=== PATIENT | male | born 1935 | race Caucasian/White ===

== ENCOUNTER 2019-12-18 13:11 | Inpatient (IN) | payer OTHER, BC ==
--- OUTSIDE RECORDS SUMMARY | 2019-12-18 13:13 | XMS REPORT | Continuity of Care Document ---
:1935 Author Organization [facility] Address [address] [place] [address] [place] [id number] Care Team Providers Name Role Phone Star TAVERAS Primary Care Physician Unavailable SYSTEM, NOT IN Attending Clinician Unavailable Star TAVERAS Attending Clinician Unavailable JOSE MCCABE Attending Clinician Unavailable MARTHA PEARSON M.D. Attending Clinician Unavailable MARTHA PEARSON M.D. Admitting Clinician Unavailable Payers Payer Name Policy Type Policy Number Effective Date Expiration Date S miladis MEDICARE PART A [id number] 2000 AND B 00:00:00 [facility] [id number] 00:00:00 Problems This patient has no known problems. Allergies, Adverse Reactions, Alerts This patient has no known allergies or adverse reactions. Medications This patient has no known medications. Procedures This patient has no known procedures. Encounters Start End Encounter Admission Attending Care Care Encounter Source Date/Time Date/Time Type Type Clinicians Facility Department ID 2019-10-07 Outpatient NICOLASA LEWIS MDA [id number] 11:13:57 AN kim 2019-11-09 2019-11-09 Outpatient NATALIA TAVERAS MDA MDA [id number] 00:00:00 00:00:00 SCOTT kim 2019-11-09 2019-11-09 Outpatient NATALIA TAVERAS MDA MDA [id number] 00:00:00 00:00:00 SCOTT kim 2019-11-09 2019-11-09 Outpatient NATALIA MCCABE MDA MDA [id number] 00:00:00 00:00:00 MARGOT kim Results Test Description Test Time Test Comments Results Result Comments Source Hemoglobin A1c 2019-10-02 5.9 07:13:12 Prediabetes: 5.7 - 6.4 Diabetes: >6.4 Glycemic control for adults with diabetes: <7.0Performed At: [facility] [address] [place], [place] [id number] Cedrick Laws MD Ph:[phone] Morphology 2019-09-30 17:13:01 Test Item Value Reference Range Interpretation Comme nts RBC Morph (test code = RBC Morph) As Indicated Normal A Anisocyte (test code = Anisocyte) 1+ A Hypochromia (test code = Hypochromia) 1+ A Microcyte (test code = Microcyte) 1+ A Poik (test code = Poik) 1+ A [place] Cells (test code = Mohsen Cells) 1+ A Elliptocyte (test code = Elliptocyte) 1+ A Schistocytes (test code = Schistocytes) 1+ A Differential Comment (test code = Differential See Comment Slide reviewed Comment) Plt Estimation (test code = Plt Estimation) Increased Normal A Complete Blood Count with [id number] 15:25:25 Test Item Value Reference Range Interpretation Comments WBC (test code = WBC) 8.3 x10 4.8-10.8 RBC (test code = RBC) 4.12 x10 4.60-6.20 L Hgb (test code = Hgb) 8.6 g/dL 14.0-18.0 L MCV (test code = MCV) 74.5 fL 80.0-95.0 L Hct (test code = Hct) 30.7 % 38.0-52.0 L RDW (test code = RDW) 19.6 % 11.5-14.5 N MCHC (test code = MCHC) 28.0 g/dL 31.0-36.0 L MCH (test code = MCH) 20.9 pg 26.0-32.0 L Platelets (test code = 475 x10 140-440 H Platelets) MPV (test code = MPV) 8.9 fL 7.5-11.2 Slide Review (test code Smear Resu lt created by = Slide Review) GL_SET_SLIDE _REVIEW_A UTO Automated [id number] 15:25:25 Test Item Value Reference Range Interpretation Comments Neutro Auto (test code = Neutro Auto) 74.4 % N Lymph Auto (test code = Lymph Auto) 17.2 % N [place] Auto (test code = [place] Auto) 7.1 % N Eos, Auto (test code = Eos, Auto) 0.5 % N Basophil Auto (test code = Basophil 0.6 % N Auto) Neutro Absolute (test code = Neutro 6.2 x10 2.7-7.3 Absolute) Lymph Absolute (test code = Lymph 1.4 x10 0.8-3.5 Absolute) [place] Absolute (test code = [place] 0.6 x10 0.3-0.9 Absolute) Eos Absolute (test code = Eos 0.0 x10 0.0-0.3 Absolute) Baso Absolute (test code = Baso 0.0 x10 0.0-0.1 Absolute) IG [id number] 15:25:25 Test Item Value Reference Range Interpretation Comments IG (test code = IG) 0 % 0-5 IG Abs (test code = IG Abs) 0 x10 N Lipid [id number] 15:15:23 Test Item Value Reference Range Interpretation Comments Cholesterol Total (test code = 71 mg/dL 0-200 Cholesterol Total) Triglycerides (test code = 60 mg/dL 2-150 Triglycerides) HDL (test code = HDL) 35 mg/dL 45-65 L Chol/HDL (test code = Chol/HDL) 2 ratio 0-5 Bilirubin [id number] 15:15:23 Test Item Value Reference Range Interpretation Comments Bilirubin Direct (test code = 0.20 mg/dL 0.00-0.20 Bilirubin Direct) Lipid [id number] 15:15:23 Test Item Value Reference Range Interpretation Comments Cholesterol Total (test 71 mg/dL 0-200 code = Cholesterol Total) Triglycerides (test code 60 mg/dL 2-150 = Triglycerides) HDL (test code = HDL) 35 mg/dL 45-65 L LDL (test code = LDL) 24 mg/dL 1-99 The eq uation being used in this calculation is LDL = (Chol - HDL) - (Trig / 5) Chol/HDL (test code = 2 ratio 0-5 Chol/HDL) Comprehensive Metabolic [id number] 15:15:22 Test Item Value Reference Range Interpretation Comments Sodium Level (test code = 139 mmol/L 136-145 Sodium Level) Potassium Level (test code 4.0 mmol/L 3.5-5.1 = Potassium Level) Chloride Level (test code 109 mmol/L 98-107 H = Chloride Level) CO2 (test code = CO2) 24 mmol/L 21-32 Anion Gap (test code = 6 mmol/L 7-16 L Anion Gap) BUN (test code = BUN) 16 mg/dL 7-18 Creatinine Level (test 1.3 mg/dL 0.7-1.3 code = Creatinine Level) Glucose Level (test code = 109 mg/dL 74-106 H Glucose Level) Calcium Level (test code = 8.6 mg/dL 8.5-10.1 Calcium Level) Alk Phos (test code = Alk 80 IntlUnit/L 45-122 Phos) Bilirubin Total (test code 0.6 mg/dL 0.2-1.0 = Bilirubin Total) Albumin Level (test code = 2.4 g/dL 3.4-5.0 L Albumin Level) Protein Total (test code = 7.1 g/dL 6.4-8.2 Protein Total) ALT (test code = ALT) 13 IntlUnit/L 12-78 AST (test code = AST) 12 IntlUnit/L 10-34 eGFR AA (test code = eGFR >60 mL/min/1.73 m2 N AA) eGFR Non-AA (test code = 53 mL/min/1.73 m2 N eGFR Non-AA) Comprehensive Metabolic [id number] 15:15:22 Test Item Value Reference Range Interpretation Comments Sodium Level (test code = 139 mmol/L 136-145 Sodium Level) Potassium Level (test code 4.0 mmol/L 3.5-5.1 = Potassium Level) Chloride Level (test code 109 mmol/L 98-107 H = Chloride Level) CO2 (test code = CO2) 24 mmol/L 21-32 Anion Gap (test code = 6 mmol/L 7-16 L Anion Gap) BUN (test code = BUN) 16 mg/dL 7-18 Creatinine Level (test 1.3 mg/dL 0.7-1.3 code = Creatinine Level) Glucose Level (test code = 109 mg/dL 74-106 H Glucose Level) Calcium Level (test code = 8.6 mg/dL 8.5-10.1 Calcium Level) Alk Phos (test code = Alk 80 IntlUnit/L 45-122 Phos) Bilirubin Total (test code 0.6 mg/dL 0.2-1.0 = Bilirubin Total) Albumin Level (test code = 2.4 g/dL 3.4-5.0 L Albumin Level) Protein Total (test code = 7.1 g/dL 6.4-8.2 Protein Total) ALT (test code = ALT) 13 IntlUnit/L 12-78 AST (test code = AST) 12 IntlUnit/L 10-34 eGFR AA (test code = eGFR >60 mL/min/1.73 m2 N AA) eGFR Non-AA (test code = 53 mL/min/1.73 m2 N eGFR Non-AA) Comprehensive Metabolic [id number] 15:15:22 Test Item Value Reference Range Interpretation Comments Sodium Level (test code = 139 mmol/L 136-145 Sodium Level) Potassium Level (test code 4.0 mmol/L 3.5-5.1 = Potassium Level) Chloride Level (test code 109 mmol/L 98-107 H = Chloride Level) CO2 (test code = CO2) 24 mmol/L 21-32 Anion Gap (test code = 6 mmol/L 7-16 L Anion Gap) BUN (test code = BUN) 16 mg/dL 7-18 Creatinine Level (test 1.3 mg/dL 0.7-1.3 code = Creatinine Level) Glucose Level (test code = 109 mg/dL 74-106 H Glucose Level) Calcium Level (test code = 8.6 mg/dL 8.5-10.1 Calcium Level) Alk Phos (test code = Alk 80 IntlUnit/L 45-122 Phos) Bilirubin Total (test code 0.6 mg/dL 0.2-1.0 = Bilirubin Total) Albumin Level (test code = 2.4 g/dL 3.4-5.0 L Albumin Level) Protein Total (test code = 7.1 g/dL 6.4-8.2 Protein Total) ALT (test code = ALT) 13 IntlUnit/L 12-78 AST (test code = AST) 12 IntlUnit/L 10-34 eGFR AA (test code = eGFR >60 mL/min/1.73 m2 N AA) eGFR Non-AA (test code = 53 mL/min/1.73 m2 N eGFR Non-AA) Iron and [id number] 15:03:16 Test Item Value Reference Range Interpretation Comments Iron (test code = Iron) 15 mcg/dL 65-175 L TIBC (test code = TIBC) 289 mcg/dL 250-450 Iron Sat (test code = Iron Sat) 5 % 9-59 L
[2019-12-18 14:47] LABS: Absolute Lymphocytes (CBC) 1.3 K/uL (0.7-4.9); Basophils % 0.2 % (0-1.3); Lymphocytes % 7.6 % (15.3-44.8); MPV 7.2 fL (7.6-11.3); RBC Red Blood Cell Count 4.24 M/uL (4.33-5.43)
[2019-12-18 14:55] LABS: Protime INR 1.53
[2019-12-18 15:05] LABS: BUN Blood Urea Nitrogen 23 mg/dL (7-18); Bicarbonate 20 mmol/L (21-32); CKMB Creatine Kinase MB < 1.0 ng/mL (0.3-3.6); Creatine Phosphokinase 293 U/L (39-308); Glucose Level 117 mg/dL (74-106); Potassium 4.1 mmol/L (3.5-5.1); Sodium Level 137 mmol/L (136-145); Troponin (Emerg Dept Use Only) 0.02 ng/mL (0.0-0.045)
[2019-12-18] MEDS ORDERED: NA CHLORIDE 0.9% 2,000 ML ONE (15:07)
[2019-12-18] MEDS ORDERED: PIPER/TAZO/NS 3.375gm 3.375 GM/100 ML BAG ONE ×2 (15:10→21:22)
[2019-12-18 15:21] LABS: Anisocytosis 1+; Blood Morphology Comment NOTED (NOT SEEN); Hypochromasia 1+; Ovalocytes 1+; Platelet Estimate INCR; White Blood Cell Scan OK (OK)
--- NOTE | 2019-12-18 15:32 | EDPHYS ---
Physician Documentation [facility] Name: Rusty Dorantes Age: 84 yrs Sex: Male : 1935 Arrival Date: 12/18/2019 Time: 13:15 Bed 16 Private MD: ED Physician Tyrone Garcia HPI: 12/17 14:28 This 84 yrs old Male presents to ER via Wheelchair with complaints of Urinary snw Problem, Fall Injury. 14:28 Onset: The symptoms/episode began/occurred gradually. Associated signs and symptoms: snw Pertinent positives: abd cramping. The patient has experienced similar episodes in the past, several times. The patient has not recently seen a physician, PCP in [place]. denies fever. 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 - Social history:: Smoking status: Patient denies any tobacco usage or history of. ROS: 14:26 Eyes: Negative for injury, pain, redness, and discharge, ENT: Negative for injury, snw pain, and discharge, Neck: Negative for injury, pain, and swelling, Cardiovascular: Negative for chest pain, palpitations, and edema, Respiratory: Negative for shortness of breath, cough, wheezing, and pleuritic chest pain, Abdomen/GI: Negative for abdominal pain, nausea, vomiting, diarrhea, and constipation, Back: Negative for injury and pain. 14:26 Skin: Negative for injury, rash, and discoloration, Neuro: Negative for headache, weakness, numbness, tingling, and seizure, Psych: Negative for depression, anxiety, suicide ideation, homicidal ideation, and hallucinations. 14:26 Constitutional: Positive for malaise. 14:26 : Positive for urinary symptoms, foul smelling urine. 14:26 MS/extremity: Positive for legs just gave out and pt fell on Friday, no LOC. Exam: 14:24 Head/Face: Normocephalic, atraumatic. Eyes: Pupils equal round and reactive to light, snw extra-ocular motions intact. Lids and lashes normal. Conjunctiva and sclera are non-icteric and not injected. Cornea within normal limits. Periorbital areas with no swelling, redness, or edema. ENT: Nares patent. No nasal discharge, no septal abnormalities noted. Tympanic membranes are normal and external auditory canals are clear. Oropharynx with no redness, swelling, or masses, exudates, or evidence of obstruction, uvula midline. Mucous membranes moist. Neck: Trachea midline, no thyromegaly or masses palpated, and no cervical lymphadenopathy. Supple, full range of motion without nuchal rigidity, or vertebral point tenderness. No Meningismus. Chest/axilla: Normal chest wall appearance and motion. Nontender with no deformity. No lesions are appreciated. 14:24 Constitutional: The patient appears alert, smells of urine, pale, uncomfortable. 14:24 Cardiovascular: Rate: tachycardic, Rhythm: irregularly irregular, Heart sounds: normal. 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 Vital Signs: 13:53 BP 98 / 54; Pulse 99; Resp 16; Temp 98.0; Pulse Ox 99% on R/A; Weight 98.88 kg; Height iw 6 ft. 4 in. (193.04 cm); Pain 0/10; 14:45 BP 116 / 68; Pulse 89; Resp 26 S; Pulse Ox 100% on R/A; aa5 15:30 BP 114 / 68; Pulse 87; Resp 22 S; Pulse Ox 99% on R/A; aa5 16:30 BP 116 / 65; Pulse 87; Resp 20 S; Pulse Ox 100% on R/A; aa5 17:02 BP 101 / 78; Pulse 86; Resp 20 S; Temp 98.0(O); Pulse Ox 99% on R/A; aa5 17:35 BP 107 / 58; Pulse 88; Resp 22 S; Pulse Ox 100% on R/A; aa5 18:30 BP 124 / 87; Pulse 88; Resp 20 S; Pulse Ox 100% on R/A; aa5 20:00 BP 127 / 53; Pulse 93; Resp 20; Pulse Ox 100% on R/A; vc 13:53 Body Mass Index 26.54 (98.88 kg, 193.04 cm) iw MDM: 14:09 Patient medically screened. snw 15:29 Data reviewed: vital signs, nurses notes. Data interpreted: Pulse oximetry: on room air snw is 99 %. Interpretation: normal. Counseling: I had a detailed discussion with the patient and/or guardian regarding: the historical points, exam findings, and any diagnostic results supporting the discharge/admit diagnosis, lab results, radiology results, the need for further work-up and treatment in the hospital. Physician consultation: Kingston Armstrong MD was called at 15:31, was contacted at 15:31, regarding admission, to the telemetry unit. Awaiting: CT scan results. 12/17 14:15 Order name: Basic Metabolic Panel; Complete Time: 06:42 snw 12/17 14:15 Order name: Blood Culture Adult (2) snw 12/17 14:15 Order name: CBC with Diff; Complete Time: 15:24 snw 12/17 14:15 Order name: Ckmb; Complete Time: 06:42 snw 12/17 14:15 Order name: CPK; Complete Time: 06:42 snw 12/17 14:15 Order name: Procalcitonin; Complete Time: 15:29 snw 12/17 14:15 Order name: Protime (+inr); Complete Time: 14:56 snw 12/17 14:15 Order name: Ptt, Activated; Complete Time: 14:56 snw 12/17 14:15 Order name: Troponin (emerg Dept Use Only); Complete Time: 06:42 snw 12/17 14:15 Order name: Urine Microscopic Only; Complete Time: 06:42 snw 12/17 14:22 Order name: Lactate snw 12/17 14:22 Order name: Lactate; Complete Time: 15:09 EDMS 12/17 14:31 Order name: Urine Culture snw 12/17 14:50 Order name: CBC Smear Scan; Complete Time: 15:24 EDMS 12/17 16:55 Order name: Urinalysis W/Microscopic; Complete Time: 06:42 EDMS 12/17 16:55 Order name: Thyroid Stimulating Hormone; Complete Time: 06:42 EDMS 12/17 16:55 Order name: UR CREAT; Complete Time: 06:42 EDMS 12/17 16:55 Order name: UR SODIUM; Complete Time: 06:42 EDMS 12/17 16:55 Order name: CBC with Automated Diff EDMS 12/17 16:55 Order name: CBC with Automated Diff; Complete Time: 06:42 EDMS 12/17 16:55 Order name: CBC with Automated Diff EDMS 12/17 16:55 Order name: CBC with Automated Diff EDMS 12/17 16:55 Order name: Comprehensive Metabolic Panel EDMS 12/17 16:55 Order name: Comprehensive Metabolic Panel; Complete Time: 06:42 EDMS 12/17 16:55 Order name: Comprehensive Metabolic Panel EDMS 12/17 16:55 Order name: Comprehensive Metabolic Panel EDMS 12/17 16:55 Order name: Comprehensive Metabolic Panel EDMS 12/17 16:55 Order name: Magnesium EDMS 12/17 16:55 Order name: Magnesium; Complete Time: 06:42 EDMS 12/17 16:55 Order name: Magnesium EDMS 12/17 14:15 Order name: Chest Single View XRAY; Complete Time: 15:53 snw 12/17 14:15 Order name: Cardiac monitoring; Complete Time: 14:45 snw 12/17 14:15 Order name: EKG - Nurse/Tech; Complete Time: 14:16 snw 12/17 14:15 Order name: IV Saline Lock - Large Bore; Complete Time: 14:46 snw 12/17 14:15 Order name: Labs collected and sent; Complete Time: 14:46 snw 12/17 14:15 Order name: O2 Per Protocol; Complete Time: 14:46 snw 12/17 14:15 Order name: O2 Sat Monitoring; Complete Time: 14:46 snw 12/17 14:15 Order name: Urine Dipstick-Ancillary (obtain specimen); Complete Time: 17:13 snw 12/17 14:15 Order name: CT Head C Spine; Complete Time: 15:53 snw 12/17 16:55 Order name: Chest For Pe Angio EDMS 12/17 16:55 Order name: CONS Pharmacy Consult EDMS 12/17 16:55 Order name: CONS Physician Consult EDVT 12/17 16:55 Order name: CONS Physician Consult EDVT 12/17 16:55 Order name: CONS Physician Consult EDVT 12/17 16:55 Order name: Occupational Therapy Consult EDVT 12/17 16:55 Order name: Physical Therapy Consult EDVT 12/17 16:55 Order name: Heart Healthy EDVT 12/17 16:55 Order name: Echo with Doppler EDVT 12/17 16:55 Order name: Magnesium EDVT 12/17 16:55 Order name: Troponin I EDVT 12/17 16:55 Order name: Troponin I; Complete Time: 06:42 EDMS 12/17 16:55 Order name: Troponin I; Complete Time: 06:42 EDMS 12/17 17:07 Order name: Urine Dipstick--Ancillary (enter results) 12/17 17:40 Order name: Urine Dipstick-Ancillary; Complete Time: 06:42 EDMS 12/17 17:51 Order name: Transferrin Sat/Iron Binding; Complete Time: 06:42 EDVT 12/17 17:51 Order name: Ferritin; Complete Time: 06:42 EDVT 12/17 18:45 Order name: Lactate Sepsis 2 HR Follow-up; Complete Time: 06:42 EDMS 12/17 16:07 Order name: VS Recheck; Complete Time: 16:09 snw 12/17 16:10 Order name: Liz; Complete Time: 16:59 aa5 EC:24 Rate is 106 beats/min. Rhythm is irregularly irregular. QRS Porter is Normal. Clinical snw impression: Atrial Fibrillation. Administered Medications: Discontinued: NS 0.9% 1000 ml IV at 125 ml/hr continuous Discontinued: NS 0.9% 1000 ml IV at 1000 ml once 15:05 Drug: NS 0.9% 1000 ml Route: IV; Rate: 125 ml/hr; Site: left upper arm; aa5 16:37 Follow up: IV Status: Order to discontinue infusion; VO by Dr. Armstrong aa5 15:05 Drug: Zosyn 3.375 grams Route: IVPB; Infused Over: 60 mins; Site: left hand; aa5 16:10 Follow up: Response: No adverse reaction; IV Status: Completed infusion aa5 15:05 Drug: NS 0.9% 1000 ml Route: IV; Rate: 1 bolus; Site: left upper arm; aa5 16:00 Follow up: IV Status: Completed infusion; IV Intake: 1000ml aa5 16:15 Drug: NS 0.9% 1000 ml Route: IV; Rate: 1000 ml; Site: left upper arm; aa5 16:38 Follow up: IV Status: Order to discontinue infusion; VO by Dr. Armstrong aa5 Disposition: 17:03 Co-signature as Attending Physician, yTrone Garcia MD I agree with the assessment and [facility] plan of care. Disposition: 12/18/19 15:32 Hospitalization ordered by Kingston Armstrong for Inpatient Admission. Preliminary diagnosis are Sepsis, unspecified organism, Urinary tract infection, site not specified. - Bed requested for Telemetry/MedSurg (Inpatient). - Status is Inpatient Admission. vc - Condition is Stable. - Problem is new. - Symptoms have worsened. Signatures: Dispatcher [employer] EDVT Tyrone Garcia MD MD cha Waters, Shelly, DRAWER WAXER-C DRAWER WAXER-Csnw Jolly Cloud RN RN Jeanie Corona RN RN aa5 Fany Ordonez Vanessa, RN RN vc Corrections: (The following items were deleted from the chart) 16:10 15:32 Recheck Vital Signs ordered. michelle aa5 17:03 15:32 Hospitalization Ordered by Kingston Armstrong MD for Inpatient Admission. Preliminary [facility] diagnosis is Sepsis, unspecified organism. Bed requested for Telemetry/MedSurg (Inpatient). Status is Inpatient Admission. Condition is Stable. Problem is new. Symptoms have worsened. [facility] 18:10 17:03 12/18/2019 15:32 Hospitalization Ordered by Kingston Armstrong MD for Inpatient eb Admission. Preliminary diagnosis is Sepsis, unspecified organism; Urinary tract infection, site not specified. Bed requested for Telemetry/MedSurg (Inpatient). Status is Inpatient Admission. Condition is Stable. Problem is new. Symptoms have worsened. [facility] 20:22 18:10 12/18/2019 15:32 Hospitalization Ordered by Kingston Armstrong MD for Inpatient vc Admission. Preliminary diagnosis is Sepsis, unspecified organism; Urinary tract infection, site not specified. Bed requested for Telemetry/MedSurg (Inpatient). Status is Inpatient Admission. Condition is Stable. Problem is new. Symptoms have worsened. eb
--- NOTE | 2019-12-18 15:32 | ER ---
Nurse's Notes [facility] Name: Rusty Dorantes Age: 84 yrs Sex: Male : 1935 Arrival Date: 12/18/2019 Time: 13:15 Bed 16 Private MD: Diagnosis: Sepsis, unspecified organism;Urinary tract infection, site not specified Presentation: 12/17 13:51 Chief complaint: Patient states: has had urinary frequency and pain with urination iw since Friday, also fell on Friday but does not have any injuries, legs gave out on him, no fever. 13:51 Method Of Arrival: Wheelchair iw 14:15 Coronavirus screen: Client denies travel out of the [place] in the last 14 days. At this aa5 time, the client does not indicate any symptoms associated with coronavirus-19. 14:15 Acuity: ROBERTO 2 aa5 14:15 Ebola Screen: Patient negative for fever greater than or equal to 101.5 degrees aa5 Fahrenheit, and additional compatible Ebola Virus Disease symptoms. Initial Sepsis Screen: Does the patient meet any 2 criteria? RR > 20 per min. HR > 90 bpm. Yes Does the patient have a suspected source of infection? Yes: Dysuria/Frequency/Urgency/UTI If YES to both, name of provider notified: Cami SINGH. Risk Assessment: Do you want to hurt yourself or someone else? Patient reports no desire to harm self or others. Onset of symptoms was December 2019. 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 - Social history:: Smoking status: Patient denies any tobacco usage or history of. Screenin:45 Abuse screen: Denies threats or abuse. Nutritional screening: No deficits noted. aa5 Tuberculosis screening: No symptoms or risk factors identified. Fall Risk Fall in past 12 months (25 points). No secondary diagnosis (0 pts). IV access (20 points). Ambulatory Aid- None/Bed Rest/Nurse Assist (0 pts). Gait- Weak (10 pts.). Mental Status- Oriented to own ability (0 pts). Total Barboza Fall Scale indicates High Risk Score (45 or more points). Fall prevention measures have been instituted. Side Rails Up X 2 Placed Close to Nursing Station. Assessment: 14:15 General: Appears comfortable, Behavior is calm, cooperative. Pain: Denies pain. Neuro: aa5 Level of Consciousness is awake, alert, obeys commands, Oriented to person, place, time, situation, Reports generalized weakness. . Cardiovascular: Heart tones S1 S2 present Rhythm is irregular. Respiratory: Reports baseline SOB Airway is patent Respiratory effort is even, unlabored, Respiratory pattern is regular, symmetrical. GI: Abdomen is round non-distended, Bowel sounds present X 4 quads. Abd is soft and non tender X 4 quads. Patient currently denies nausea, vomiting. : Reports pain with urination, urgency, since 4 days ago urinary frequency. EENT: No signs and/or symptoms were reported regarding the EENT system. Derm: Skin is dry, Skin is pale, Skin temperature is warm Growth to back noted, approximately 2 in in diameter, is red and hot to touch, is bleeding, pt states "it's cancer and I had one removed in the past". 2nd growth area noted to back that is approximately 1 in in diameter, is red, no bleeding noted. Foul smell noted to growths. Musculoskeletal: Range of motion: intact in all extremities. 14:30 Reassessment: Growths dressed with gauze and Tegaderm. . aa5 15:05 Reassessment: Patient denies pain at this time. Pt lying down in bed watching TV. . aa5 15:05 Reassessment: Pt was only able to void a few drops of urine, PROFESSIONAL ADVISOR was notified. . aa5 15:05 Neuro: Level of Consciousness is awake, alert, obeys commands, Oriented to person, aa5 place, time, situation. Respiratory: Airway is patent Respiratory effort is even, unlabored, Respiratory pattern is regular, symmetrical. 15:05 Derm: Skin is dry, Skin is pale, Skin temperature is warm. aa5 16:30 Reassessment: Dr. Armstrong (Hospitalist) at bedside . aa5 16:45 Reassessment: Awaiting room assignment, pt notified of wait time. . aa5 16:45 Neuro: Level of Consciousness is awake, alert, obeys commands, Oriented to person, aa5 place, time, situation. Respiratory: Airway is patent Respiratory effort is even, unlabored, Respiratory pattern is regular, symmetrical. Derm: Skin is dry, Skin is pale, Skin temperature is warm. 17:30 Reassessment: Pt lying down in bed watching TV. Warm blankets provided, no complains at aa5 this time. Awaiting room assignment. . 18:23 Reassessment: Unsuccessful attempt to give report to admitting nurse. . aa5 Vital Signs: 13:53 BP 98 / 54; Pulse 99; Resp 16; Temp 98.0; Pulse Ox 99% on R/A; Weight 98.88 kg; Height iw 6 ft. 4 in. (193.04 cm); Pain 0/10; 14:45 BP 116 / 68; Pulse 89; Resp 26 S; Pulse Ox 100% on R/A; aa5 15:30 BP 114 / 68; Pulse 87; Resp 22 S; Pulse Ox 99% on R/A; aa5 16:30 BP 116 / 65; Pulse 87; Resp 20 S; Pulse Ox 100% on R/A; aa5 17:02 BP 101 / 78; Pulse 86; Resp 20 S; Temp 98.0(O); Pulse Ox 99% on R/A; aa5 17:35 BP 107 / 58; Pulse 88; Resp 22 S; Pulse Ox 100% on R/A; aa5 18:30 BP 124 / 87; Pulse 88; Resp 20 S; Pulse Ox 100% on R/A; aa5 20:00 BP 127 / 53; Pulse 93; Resp 20; Pulse Ox 100% on R/A; vc 13:53 Body Mass Index 26.54 (98.88 kg, 193.04 cm) iw ED Course: 13:15 Patient arrived in ED. as 13:52 Triage completed. iw 14:02 Jeanie Corona, FREDA is Primary Nurse. aa5 14:09 Cami Segal FNP-C [facility]. snw 14:09 Tyrone Garcia MD is Attending Physician. snw 14:15 Patient has correct armband on for positive identification. Placed in gown. Bed in low aa5 position. Call light in reach. Side rails up X2. quality assurance monitor body on. Pulse ox on. NIBP on. 14:15 Arm band placed on. aa5 14:35 Initial lab(s) drawn, by me, sent to lab. Inserted saline lock: 20 gauge in left upper aa5 arm, using aseptic technique. Blood collected. 14:35 First set of blood cultures drawn by me. aa5 14:45 Second set of blood cultures drawn by me. Inserted saline lock: 20 gauge in left hand, aa5 using aseptic technique. 14:52 Chest Single View XRAY In Process Unspecified. EDMS 15:05 CT Head C Spine In Process Unspecified. EDMS 15:31 Kingston Armstrong MD is Hospitalizing Provider. snw 17:00 Urine collected: Liz catheter specimen, cloudy. Liz cath inserted, using sterile iw technique, 16 Fr., by me, balloon inflated, returned cloudy urine. Patient tolerated well. 19:12 Report given to FREDA Ashby. aa5 20:15 No provider procedures requiring assistance completed. Patient admitted, IV remains in vc place. Administered Medications: Discontinued: NS 0.9% 1000 ml IV at 125 ml/hr continuous Discontinued: NS 0.9% 1000 ml IV at 1000 ml once 15:05 Drug: NS 0.9% 1000 ml Route: IV; Rate: 125 ml/hr; Site: left upper arm; aa5 16:37 Follow up: IV Status: Order to discontinue infusion; VO by Dr. Armstrong aa 15:05 Drug: Zosyn 3.375 grams Route: IVPB; Infused Over: 60 mins; Site: left hand; aa5 16:10 Follow up: Response: No adverse reaction; IV Status: Completed infusion aa5 15:05 Drug: NS 0.9% 1000 ml Route: IV; Rate: 1 bolus; Site: left upper arm; aa5 16:00 Follow up: IV Status: Completed infusion; IV Intake: 1000ml aa5 16:15 Drug: NS 0.9% 1000 ml Route: IV; Rate: 1000 ml; Site: left upper arm; aa5 16:38 Follow up: IV Status: Order to discontinue infusion; VO by Dr. Armstrong aa5 Intake: 16:00 IV: 1000ml; Total: 1000ml. aa5 Outcome: 15:32 Decision to Hospitalize by Provider. snw 20:20 Admitted to Med/surg accompanied by tech, via stretcher, room 209, with chart. vc 20:20 Condition: good 20:22 Patient left the ED. vc 20:22 Instructed on the need for admit. vc Signatures: Dispatcher [employer] EDMS Cami Sgeal, GAME AUTHOR-C GAME AUTHOR-Maria Elena Bates as Jolly Cloud, FREDA RN Jeanie Corona RN RN aa5 Symone Arteaga RN RN vc Corrections: (The following items were deleted from the chart) 16:11 15:05 Zosyn 3.375 grams IVPB in left upper arm over 60 mins aa aa5 17:06 16:30 Reassessment: Dr. Armstrong at bedside . aa aa5 17:23 13:51 Acuity: ROBERTO 3 iw aa 17:23 14:20 Coronavirus screen: Client denies travel out of the [place] in the last 14 days. At aa this time, the client does not indicate any symptoms associated with coronavirus-19. aa5 18:48 14:15 Derm: Skin is pink, warm \\T\\ dry. aa aa5 18:54 14:15 Derm: Skin is pink, warm \\T\\ dry. Growth to back noted, approximately 2 in in aa5 diameter, is red and hot to touch, is bleeding, pt states "it's cancer and I had one removed in the past". 2nd growth area noted to back that is approximately 1 in in diameter, is red, no bleeding noted. Foul smell noted to growths. aa5 18:54 15:05 Reassessment: Patient is alert, oriented x 3, equal unlabored respirations, skin aa5 warm/dry/pink. Patient denies pain at this time. Pt lying down in bed watching TV. . aa5 18:55 16:45 Reassessment: Patient is alert, oriented x 3, equal unlabored respirations, skin aa5 warm/dry/pink. Awaiting room assignment, pt notified of wait time. . aa5
--- NOTE | 2019-12-18 15:51 | RAD REPORT ---
EXAM DESCRIPTION: CT - [id number] - 12/18/2019 3:05 pm CLINICAL HISTORY: Trauma, head and neck injury. fall COMPARISON: No comparisons TECHNIQUE: Axial 5 mm thick images of the head were obtained. Axial 2 mm thick images of the cervical spine were obtained with sagittal and coronal reconstruction images generated and reviewed. All CT scans are performed using dose optimization technique as appropriate and may include automated exposure control or mA/KV adjustment according to patient size. FINDINGS: CT HEAD WITHOUT CONTRAST: No acute hemorrhage, hydrocephalus or extra-axial collection is identified.Moderate generalized brain atrophy is noted.No areas of brain edema or midline shift. Vertebral atherosclerosis. The paranasal sinuses and mastoids are clear.The calvarium is intact. CT CERVICAL SPINE WITHOUT CONTRAST: No fracture or subluxation.Moderate mid and lower cervical degenerative changes.No prevertebral soft tissues swelling is identified. IMPRESSION: No acute intracranial or cervical spine findings. Moderate mid and lower cervical degenerative changes.
--- NOTE | 2019-12-18 15:52 | RAD REPORT ---
EXAM DESCRIPTION: RAD - Chest Single View - 12/18/2019 2:52 pm CLINICAL HISTORY: fall Chest pain. COMPARISON: No comparisons FINDINGS: Portable technique limits examination quality. The lungs are grossly clear. The heart is normal in size. No displaced fractures. IMPRESSION: No acute intrathoracic process suspected.
[2019-12-18] MEDS ORDERED: NA CHLORIDE 0.9% 1,000 ML ONE (16:35)
[2019-12-18] MEDS ORDERED: ALBUTEROL 2.5 MG/3 ML NEB SOL NEB PRN (16:47)
[2019-12-18] MEDS ORDERED: ONDANSETRON 4 MG/2 ML VIAL IV PRN (16:47)
[2019-12-18] MEDS ORDERED: VANCOMYCIN 1 GM in NA CHLORIDE 0.9% 250 ML IVPB ONE (16:51)
[2019-12-18] MEDS ORDERED: Ringers Lactate 1,000 ML IV SCH ×2 (17:00→17:11)
[2019-12-18] MEDS ORDERED: NA CHLORIDE 0.9% 1,000 ML IV SCH (17:00)
--- NOTE | 2019-12-18 17:01 | P.HP ---
Certification for Inpatient Patient admitted to: Inpatient With expected LOS: >2 Midnights Patient will require the following post-hospital care: None Practitioner: I am a practitioner with admitting privileges, knowledge of patient current condition, hospital course, and medical plan of care. Services: Services provided to patient in accordance with Admission requirements found in Title 42 Section 412.3 of the Code of Federal Regulations Patient History Date of Service: 12/18/19 Reason for admission: Weakness, fall History of Present Illness: 84-year-old male with past medical history of HTN on antihypertensive medication-puncture of name, history of hyperlipidemia, history of CAD status post PCI x2 in the past, last 1 was 15 years ago approximately, history of upper back basal cell cancer status post resection over 10 years ago sammy with newly discovered new lesions in the lower back and reportedly referred to MD Garcia over 6 months ago but patient has deferred due to the covid period . He has recently moved to this area and staying with the daughter. He developed increasing weakness since the last 3 days and today after driving home he had a fall while trying to get his walker from the back of his calf. Patient denies any loss of syncope/consciousness. He states he had tripped on a grass while getting his walker . He states he was able to lay himself down to the ground because of weakness. However he was unable to get up independently. He denies any chest pain, he denies any recent shortness of breath, diarrhea, fever or chills. On arrival in the ED he was noted to be hypotensive with systolic blood pressure in the 90s as well as borderline elevated temperature of 99.5. His lactate was elevated at 3.8 on pro calcitonin was high at 1.5. His chest x-ray was clear as well as head CT. His EKG shows afib vs aberent vent conduction rhythm He has been admitted for presumed sepsis. He has received 1 L normal saline as well as IV Zosyn. He was noted by the nursing staff to have bloody drainage from 1 of the large lesions on his lower back - Past Medical/Surgical History Has patient received pneumonia vaccine in the past: No Diabetic: No -: HTN -: HLD -: CAD s/p PCI -: knee surgery -: upper back basal cell excision - Social History Smoking Status: Never smoker Alcohol use: No CD- Drugs: No Caffeine use: No Place of Residence: Home Review of Systems 10-point ROS is otherwise unremarkable Physical Examination - Physical Exam General: Alert, In no apparent distress, Oriented x3, Other (eldelry male , mild dyspneic during conversation ) HEENT: Atraumatic, Normocephalic, PERRLA Neck: Supple, 2+ carotid pulse no bruit, JVD not distended, No Thyromegaly Respiratory: Clear to auscultation bilaterally, Normal air movement Cardiovascular: Normal pulses, Regular rate/rhythm, Normal S1 S2, Edema (trace b/l pedal ) Capillary refill: <2 Seconds Gastrointestinal: Normal bowel sounds, Soft and benign, Non-distended Integumentary: Other (large exophytic 10 x8 cm mass over left back -oozing punctate granulated surface, smaller non oozing lesion over right back ) Neurological: Normal speech, Normal strength at 5/5 x4 extr, Normal tone - Studies Laboratory Data (last 24 hrs) 12/18/19 14:34: PT 17.9 H, INR 1.53, APTT 28.8 12/18/19 14:34: WBC 17.4 H, Hgb 9.5 L, Hct 30.0 L, Plt Count 465 H 12/18/19 14:34: Sodium 137, Potassium 4.1, BUN 23 H, Creatinine 1.53 H, Glucose 117 H Imagings Data: Chest x-ray-clear lungs EKG-sinus tachycardia at 101 beats per min, aberrant conduction defect however on telemetry patient noted with intermittent dropped QRS be consistent with Mobitz type 2 B Assessment and Plan - Problems (Diagnosis) (1) Cancer of skin of back Current Visit: Yes Status: Acute (2) Weakness Current Visit: Yes Status: Acute (3) Falls Current Visit: Yes Status: Acute (4) Sepsis Current Visit: Yes Status: Acute (5) Cellulitis of back Current Visit: Yes Status: Acute (6) Anemia due to blood loss Current Visit: Yes Status: Acute (7) CAD (coronary artery disease) Current Visit: Yes Status: Acute - Advance Directives Does patient have a Living Will: No Does patient have a Durable POA for Healthcare: No - Code Status/Comfort Care Code Status: Full Code Physician Review: Patient Assessed, Agree with Above Assessment and Plan Physician Review Additional Text: # sepsis-may be due to all back cellulitis Follow blood culture Elevated pro calcitonin and leukocytosis noted Start empirical Zosyn with dose Vanco x1 today Follow WBC trend Continue gentle IV fluid but will reduce rate to 50 cc/hour and giving intermittent dyspnea Obtain a UA after place Ilz #Hypotension-improving post IVF Will reduce IVF rate #Acute kidney injury-creatinine elevated at 1.5, obtain urine studies Will consult Nephrology Renally dose medications #Metabolic acidosis-2 to lactic acidosis with acute kidney injury Follow with an IV antibiotics monitor trend -we switch IV fluid to lactate Ringer's #INTERMITTENT DYSPNEA-may be due to mild anemia/sepsis/rule out PE Will obtain CT of the chest to rule out PE if creatinine a improved to 0 less than 1.3 Might need V/Q scan if non improving creatinine in a.m. We start empirical subcutaneous Lovenox despite oozing basal cell cancer lesion #Anemia- due to chronic blood loss from skin cancer or skin Follow him iron profile PRBC p.r.n. hemoglobin less than 7 #Cardiac arrhythmia -may be due to sick sinus syndrome Will obtain tsh Will consult Cardiology 2 serial set of cardiac enzymes # DVT prophylaxis-subcutaneous Lovenox for now # SKin cancer with oozing lesion-Will consult Plastic surgery for evaluation Patient agreeable to surgery if needed at this time #Advanced directive-discussed with patient, he would like full code Time Spent Managing Pts Care (In Minutes): 75
[2019-12-18 17:22] VITALS: BMI 26.5
[2019-12-18 17:39] LABS: Urine Bacteria >50 /HPF (NONE SEEN); Urine Culture Reflex Order NOT NEEDED
[2019-12-18 17:40] LABS: Urine RBC <5 /HPF (NONE SEEN)
[2019-12-18 17:40] LABS: Urine Blood 1+ (NEG); Urine Glucose NEGATIVE (NEG); Urine Protein 3+ (NEG); Urine pH 8.5 (5.0-7.0)
[2019-12-18 17:51] LABS: Ferritin 81.9 ng/mL (26-388); Transferrin 151 mg/dL (200-360)
[2019-12-18 18:52] LABS: Magnesium 2.4 mg/dL (1.8-2.4); Thyroid Stimulating Hormone 1.54 uIU/mL (0.360-3.740); Troponin I 0.02 ng/mL (0.0-0.045)
[2019-12-18] MEDS ORDERED: VANCOMYCIN 1 GM/VIAL ONE (21:22)
[2019-12-18] MEDS ORDERED: NA CHLORIDE 0.9% 250 ML ONE (21:33)
[2019-12-18] MEDS: PIPER/TAZO/NS 3.375gm 3.375 GM/100 ML BAG IVPB SCH (22:58)
[2019-12-19 05:22] LABS: Urine Appearance TURBID; Urine Bilirubin NEGATIVE (NEG); Urine Blood 3+ (NEG); Urine Color DK YELLOW; Urine Glucose NEGATIVE (NEG); Urine Protein 2+ (NEG)
[2019-12-19 06:11] LABS: Urine Bacteria 20-50 /HPF (NONE SEEN); Urine Culture Reflex Order NOT NEEDED; Urine Mucus 1+ /HPF (NONE SEEN); Urine RBC TNTC /HPF (NONE SEEN)
[2019-12-19 06:24] LABS: Absolute Lymphocytes (CBC) 1.5 K/uL (0.7-4.9); Basophils % 0.2 % (0-1.3); Hematocrit 26.8 % (39.6-49.0); Lymphocytes % 15.9 % (15.3-44.8); MPV 7.3 fL (7.6-11.3); RBC Red Blood Cell Count 3.77 M/uL (4.33-5.43)
[2019-12-19 06:31] LABS: Albumin 1.9 g/dL (3.4-5.0); Bilirubin Total 0.5 mg/dL (0.2-1.0); Potassium 3.4 mmol/L (3.5-5.1); Protein, Total 6.3 g/dL (6.4-8.2)
[2019-12-19] MEDS ORDERED: PIPER/TAZO/NS 3.375gm 3.375 GM/100 ML BAG ONE (08:23)
[2019-12-19] MEDS: PIPER/TAZO/NS 3.375gm 3.375 GM/100 ML BAG IVPB SCH ×2 (08:30→21:17)
[2019-12-19] MEDS ORDERED: propofoL 200 MG/20 ML VIAL IV ONE (08:42)
[2019-12-19] MEDS ORDERED: LIDOCAINE 2% MPF 5 ML VIAL ONE (08:43)
[2019-12-19] MEDS ORDERED: Phenylephrine HCl 10 MG/ML 1 ML VIAL ONE (09:00)
[2019-12-19] MEDS ORDERED: FENTANYL CITR 100 MCG/2 ML ONE (09:08)
[2019-12-19] MEDS ORDERED: dexAMETHasone 10 MG/ML VIAL ONE (09:14)
[2019-12-19] MEDS ORDERED: KETOROLAC 30 MG/ML INJ ONE (09:18)
[2019-12-19] MEDS ORDERED: ONDANSETRON 4 MG/2 ML VIAL ONE (09:18)
--- NOTE | 2019-12-19 09:20 | P.PN ---
Subjective Date of Service: 12/19/19 Chief Complaint: Weakness, fall Subjective: No new changes, No C/O voiced Physical Examination - Vital Signs Temperature: 97.1 F Blood Pressure: 115/61 Pulse: 90 Respirations: 16 Pulse Ox (%): 97 - Physical Exam General: Alert, In no apparent distress, Oriented x3 HEENT: Atraumatic, Normocephalic, PERRLA Neck: Supple, 2+ carotid pulse no bruit, JVD not distended Respiratory: Clear to auscultation bilaterally, Normal air movement Cardiovascular: Normal pulses, Regular rate/rhythm, Normal S1 S2 Gastrointestinal: Normal bowel sounds, Soft and benign, Non-distended Musculoskeletal: No clubbing, No swelling Integumentary: No breakdown, No significant lesion, Skin breakdown, Other (mass over mid back ) Neurological: Normal speech, Normal strength at 5/5 x4 extr, Normal tone - Studies Laboratory Data (last 24 hrs) 12/18/19 14:34: PT 17.9 H, INR 1.53, APTT 28.8 12/18/19 14:34: WBC 17.4 H, Hgb 9.5 L, Hct 30.0 L, Plt Count 465 H 12/18/19 14:34: Sodium 137, Potassium 4.1, BUN 23 H, Creatinine 1.53 H, Glucose 117 H Microbiology Data (last 24 hrs): 12/18/19 14:40 Blood - Blood Anaerobic Blood Culture - Final Assessment & Plan - Problems (Diagnosis) (1) Cancer of skin of back Current Visit: Yes Status: Acute (2) Weakness Current Visit: Yes Status: Acute (3) Falls Current Visit: Yes Status: Acute (4) Sepsis Current Visit: Yes Status: Acute (5) Cellulitis of back Current Visit: Yes Status: Acute (6) Anemia due to blood loss Current Visit: Yes Status: Acute (7) CAD (coronary artery disease) Current Visit: Yes Status: Acute Physician Review: Patient Assessed, Agree with Above Assessment and Plan Physician Review Additional Text: # Sepsis- improving - due to back cancer skin cellulitis - Elevated pro calcitonin and leukocytosis noted -c/w empirical Zosyn -continue gentle IVF -follow post back cancer excision today # Hypotension-resolved #Acute kidney injury-Improved to 1.1 now follow renal #Metabolic acidosis-improved -c/w LR # Hypokalemia- will replete #Intermittent Dyspnea - resolved #Anemia- low at 8.4 -due to chronic blood loss from skin cancer or skin -Follow iron profile -PRBC p.r.n. hemoglobin less than 7 # Atrial fib -with RBBB - seen by cardiology this am - plan for further testing post surgery # DVT prophylaxis-subcutaneous Lovenox for now # Back skin cancer with oozing lesion- follow plastic surgery plan for excision today - take to OR today # UTI - follow cx , c/w zosyn #Advanced directive-discussed with patient, he is full code
[2019-12-19] MEDS ORDERED: KCL 20 MEQ/100 mL IVPB 20 MEQ/100 ML BAG IV SCH (10:00)
--- NOTE | 2019-12-19 11:30 | P.CNS ---
Date of Consult: 12/19/19 Reason for Consult: FELIPE Chief Complaint: Weakness, fall History of Present Illness: An 84-year-old man with past medical history of HTN on lisinopril , CAD S/P PCI, and back Basal cell carcinoma pt was refereed to MD Garcia, pt appointment was deferred due to COVID 19 pandemic pt presented for weakness in ER pt was hypotesnive with leucocytosis and Cr 1.5 denied chest pain, palpitation, nausea, vomiting or diarrhea Physical exam general: awake and alert NAD , Neck; Supple, No elevated JVD hear: RRR, normal S1,2 no murmur or rub Chest: CTAB, no rlaes or wheezes Abdomen: Soft , Nt Extremities No edema or ulcer A/p FELIPE due to dehydration + MIKE off lisinopril gentle hydration renal dose meds will consider to remove Raphael catheter tomorrow Septic shock possibly due to back cellulites +/- UTI Cont ABx F/U cultures HAGMA possibly due to FELIPE if no improvement with tomorrows labs will add po Sodium bicarb Hypokalemia replace prn HTN BP borderline now cont hold meds SEGUNDO will start on IV iron Afib with RVR now rate controlled awaiting cardiology recommendation thanks for allowing me to participate in PT care Allergies Opioids - Morphine Analogues Allergy (Verified 12/18/19 20:32) Hives/Rash Home Medications: Aspirin 81 mg PO DAILY 12/18/19 Atorvastatin Calcium 10 mg PO DAILY 12/18/19 lisinopriL [Lisinopril] 10 mg PO DAILY 12/18/19 - Past Medical/Surgical History Diabetic: No -: HTN -: HLD -: CAD s/p PCI -: knee surgery -: upper back basal cell excision - Family History Father Medical History: Heart disease - Social History Alcohol use: No CD- Drugs: No Caffeine use: Yes Place of Residence: Home Physical Examination Temp Pulse Resp BP Pulse Ox 97.2 F 71 18 101/49 L 97 12/19/19 09:48 12/19/19 09:48 12/19/19 09:48 12/19/19 09:48 12/19/19 09:29 Laboratory Data (last 24 hrs) 12/18/19 14:34: PT 17.9 H, INR 1.53, APTT 28.8 12/18/19 14:34: WBC 17.4 H, Hgb 9.5 L, Hct 30.0 L, Plt Count 465 H 12/18/19 14:34: Sodium 137, Potassium 4.1, BUN 23 H, Creatinine 1.53 H, Glucose 117 H
[2019-12-19] MEDS ORDERED: POTASSIUM CL SA 10 MEQ TAB PO ONE (11:46)
[2019-12-19] MEDS ORDERED: Ringers Lactate 1,000 ML IV SCH (12:00)
[2019-12-19 12:25] LABS: Absolute Lymphocytes (CBC) 0.7 K/uL (0.7-4.9); Basophils % 0.1 % (0-1.3); Hematocrit 27.7 % (39.6-49.0); Lymphocytes % 7.1 % (15.3-44.8); MPV 7.4 fL (7.6-11.3); RBC Red Blood Cell Count 3.92 M/uL (4.33-5.43)
--- NOTE | 2019-12-19 12:48 | CON ---
Date of Consultation: 12/19/2019 Reason For Consultation: Atrial fibrillation and cardiac clearance. History Of Present Illness: The patient is an 84-year-old male who has a history of hypertension, dy slipidemia, and anemia, came in for UTI and was noted to have a large what appeared to be basal cell carcinoma on the back. Does plan for him to undergo surgery today by Dr. Perdomo. I was asked to clear him because he was noted to have incidental atrial fibrillation with rapid ventricular response with a right bundle-branch block aberrancy. The patient denied any symptoms from a cardiac standpoi nt. He denied any chest pain, shortness of breath, or palpitations. He denied any PND, orthopnea, p edal edema. Denied any palpitation or syncope. Past Medical History: As stated above his. Allergies: HE IS ALLERGIC TO OPIATES. Review of Systems: Negative. Social History: Negative. Family History: Noncontributory. Medications: At home include lisinopril, Lipitor, and aspirin. Physical Examination: GENERAL: He appeared his stated age. A very pleasant gentleman in no acute distress, atrial fibrill ation, afebrile. Heart rate when I saw him was 80. HEENT: Negative. NECK: Supple. No bruit, lymphadenopathy, JVD, or thyromegaly. CHEST: Clear. CARDIAC: Revealed atrial fibrillation. ABDOMEN: Benign. EXTREMITIES: Revealed no clubbing, cyanosis, or edema. SKIN: Positive for skin cancer on the back. Diagnostic Data: A urinalysis showed UTI. Impression And Plan: 1.Incidental finding of atrial fibrillation, rate controlled. The patient needs to be on metoprolol and Lovenox. Once he is done with surgery, he should have an echocardiogram and he should be placed on Xarelto or Eliquis. Plan to do an outpatient Lexiscan later. He is clear for surgery. His rate is controlled. 2.Mild anemia. 3.Urinary tract infection with elevated procalcitonin, on antibiotics. 4.Dyslipidemia, well controlled. 5.Hypertension, well controlled. I will continue to follow the patient postoperatively. DENICE/THUAN Voice ID: [id number] Report ID: [id number]
--- NOTE | 2019-12-19 13:18 | OP ---
Surgeon: Gigi Perdomo MD Preoperative Diagnosis: Basal cell carcinomas of the right and left back. Postoperative Diagnosis: Basal cell carcinomas of the right and left back. Procedure Performed: Excision of 11 x 10 and 9 x 6 cm basal cell carcinomas of the back. Anesthesia: General. Description Of Procedure: After satisfactory induction of general anesthesia, the patient was placed in the right lateral decubitus position and the back was prepped with Betadine scrub and painted wit h dry sterile drapes in the usual manner. Electrocautery used to make a skin incision, excising the margins around approximately 1 cm over the open areas. Electrocautery used to dissect down through t he fat and the wound was excised superficial to the fascia. Both wounds were done in some manner. E lectrocautery used for hemostasis. Upon completion of this case, both sites were completely dry. Th e wound was then packed with 4 x 4's and ABDs and tape dressing. The patient tolerated the procedure well, returned to the recovery room. Estimated blood loss was 300 mL. YOUNG/THUAN Voice ID: [id number] Report ID: [id number]
[2019-12-19] MEDS: Ringers Lactate 1,000 ML IV SCH (21:17)
--- NOTE | 2019-12-19 21:44 | P.PN ---
Date of Service: 12/19/19 I was not given sign out on this patient, Was called by nursing staff as patient had elevated heart rate around 123. Patient was admitted for sepsis secondary to cellulitis and urinary tract infection. Patient had incidental finding of atrial fibrillation and cardiology was consulted for surgical clearance. Patient was cleared by cardiology with instructions to initiate metoprolol and Lovenox. Patient currently having sinus tachycardia with a rate of 123, blood pressure stable at 120/77 patient afebrile at this time. I when examined the patient, he appeared dry. Urine in catheter drainage bag is dark. Mucous membranes dry. Will continue with LR bolus. Breath sounds clear bilaterally. Will initiate metoprolol therapy with 25 mg p.o. b.i.d. will hold off on Lovenox at this time as patient had surgical procedure today. Patient awake, alert, oriented x4 in no distress. Patient does not feel short of breath this time. Will continue to monitor overnight. Hospitalist service will need to get a hold of surgeon tomorrow to determine if he can be anticoagulated.
[2019-12-19] MEDS: METOPROLOL TAR 25 MG TAB PO SCH (21:53)
[2019-12-20] MEDS: Ringers Lactate 1,000 ML IV SCH ×3 (03:51→22:53)
[2019-12-20] MEDS: METOPROLOL TAR 25 MG TAB PO SCH (05:16)
[2019-12-20 05:39] LABS: Basophils % 0.1 % (0-1.3); Hematocrit 24.7 % (39.6-49.0); Lymphocytes % 12.4 % (15.3-44.8); MPV 7.5 fL (7.6-11.3); RBC Red Blood Cell Count 3.49 M/uL (4.33-5.43)
[2019-12-20 05:53] LABS: Albumin 1.8 g/dL (3.4-5.0); Bilirubin Total 0.3 mg/dL (0.2-1.0); Potassium 4.7 mmol/L (3.5-5.1); Protein, Total 5.9 g/dL (6.4-8.2)
[2019-12-20] MEDS ORDERED: SOD FERRIC GLUC COMPLX/SUCROSE 125 MG in NA CHLORIDE 0.9% 100 ML IV SCH (09:00)
[2019-12-20] MEDS ORDERED: ALBUTEROL 2.5 MG/3 ML NEB SOL NEB PRN (09:00)
--- NOTE | 2019-12-20 09:25 | DS ---
Dressing changed today. There is no bleeding and the dressing is clean and dry. 4x4s applied. Plan surgery on Friday. We will wait for his pathology report prior to excision and skin graft at alex t time. YOUNG/THUAN Voice ID: [id number] Report ID: [id number]
[2019-12-20] MEDS: PIPER/TAZO/NS 3.375gm 3.375 GM/100 ML BAG IVPB SCH ×2 (09:50→21:50)
[2019-12-20] MEDS: IRON SUCROSE 100 MG in NA CHLORIDE 0.9% 100 ML IV SCH (09:50)
[2019-12-20] MEDS ORDERED: NA CHLORIDE 0.9% 250 ML ONE ×2 (09:52→23:57)
[2019-12-20] MEDS: ENOXAPARIN 100 MG/ML SYR SQ SCH ×2 (13:45→21:50)
--- NOTE | 2019-12-20 15:30 | P.PN ---
Subjective Date of Service: 12/20/19 Patient not having any bleeding currently but has bled quite a bit from the back on the wound, but overnight patient was having tachyarrhythmia. Patient blood pressure has also been running on the lower side. Patient has history of Coronary artery Disease then with hemoglobin under 8 will benefit from blood transfusion. I will go ahead and transfuse 2 units of packed red blood cells. Patent getting iron transfusion; however, with his hemodynamic being unstable he will benefit from blood transfusion immediately. Bolus IV fluids as well. Currently on medication for rate control. Review of Systems 10-point ROS is otherwise unremarkable Physical Examination - Vital Signs Temperature: 97.0 F Blood Pressure: 99/57 Pulse: 133 Respirations: 16 Pulse Ox (%): 100 - Physical Exam General: Alert, In no apparent distress, Oriented x3 Respiratory: Clear to auscultation bilaterally, Normal air movement Cardiovascular: Regular rate/rhythm, Normal S1 S2 Gastrointestinal: Normal bowel sounds, Soft and benign, Non-distended, No tenderness Musculoskeletal: No tenderness Integumentary: Skin breakdown, Skin lesion, Other (Wound on the back status post surgical intervention: clean/dry/intact) Neurological: Normal strength at 5/5 x4 extr, Sensation intact, Cranial nerves 3-12 intact - Studies Microbiology Data (last 24 hrs): 12/18/19 14:40 Blood - Blood Anaerobic Blood Culture - Final Medications List Reviewed: Yes Assessment & Plan - Problems (Diagnosis) (1) Anemia due to blood loss Current Visit: Yes Status: Acute (2) CAD (coronary artery disease) Current Visit: Yes Status: Acute (3) Cancer of skin of back Current Visit: Yes Status: Acute (4) Hypoalbuminemia Current Visit: Yes Status: Acute (5) Coagulopathy Current Visit: Yes Status: Acute - Plan Plan: 1. Transfuse 2 units of packed red blood cells 2. Monitor H&H closely 3. Continue cardiac meds for rate control 4. Increase nutrition 5. Monitor albumin and coagulopathy 6. Hand surgery to reassess in the next 24 hr for possible skin graft 7. GI and DVT prophylaxis Discharge Plan: Home Plan to discharge in: Greater than 2 days - Advance Directives Does patient have a Living Will: Yes Does patient have a Durable POA for Healthcare: Yes - Code Status/Comfort Care Code Status: Full Code Physician Review: Patient Assessed, Agree with Above Assessment and Plan Critical Care: No Time Spent Managing PTS Care (In Minutes): 35
[2019-12-20] MEDS ORDERED: NA CHLORIDE 0.9% 500 ML IV ONE (16:00)
[2019-12-20] MEDS ORDERED: ALBUMIN HUMAN 25% 100 ML IV ONE (16:00)
[2019-12-20] MEDS: FLUCONAZOLE 100 MG TAB PO SCH (16:29)
[2019-12-20] MEDS ORDERED: DIGOXIN 0.25 MG/ML AMP IV ONE (17:03)
[2019-12-20] MEDS: METOPROLOL TAR 50 MG TAB PO SCH (17:05)
--- NOTE | 2019-12-20 18:55 | PN ---
Date of Progress Note: 12/20/2019 The patient was seen yesterday for paroxysmal atrial fibrillation with rapid ventricular response, ri ght bundle block aberrancy. He underwent a skin surgery yesterday by Dr. Guzman. There is a plan apparently to do a skin graft on Friday, which is 48 hours from now. The patient remains in atria l fibrillation with normal ventricular response. No cardiac complaint. This atrial fibrillation is new onset as far as we know. He had symptoms of it before and diagnosed with it before. I think con sidering his age and overall status, I would prefer that he gets on anticoagulant. I think Lovenox w ould be reasonable for now. I would like to increase his beta-emily to 25 b.i.d. of Lopressor to c ontrol his rate better. Get an echocardiogram in the morning after his surgery is completed. He davian uld be on Eliquis or Xarelto. I will continue to follow him. DENICE/THUAN Voice ID: [id number] Report ID: [id number]
[2019-12-20] MEDS: NYSTATIN PWDR 100000 UNIT/GM TOP SCH (21:50)
[2019-12-21 05:33] LABS: Absolute Lymphocytes (CBC) 2.1 K/uL (0.7-4.9); Basophils % 0.3 % (0-1.3); Hematocrit 30.2 % (39.6-49.0); Lymphocytes % 25.1 % (15.3-44.8); MPV 7.3 fL (7.6-11.3); RBC Red Blood Cell Count 4.13 M/uL (4.33-5.43)
[2019-12-21] MEDS: METOPROLOL TAR 50 MG TAB PO SCH ×2 (05:46→17:05)
[2019-12-21 05:48] LABS: Albumin 1.8 g/dL (3.4-5.0); Bilirubin Total 0.6 mg/dL (0.2-1.0); Potassium 4.5 mmol/L (3.5-5.1); Protein, Total 5.7 g/dL (6.4-8.2)
[2019-12-21] MEDS: ENOXAPARIN 100 MG/ML SYR SQ SCH ×2 (08:27→21:44)
[2019-12-21] MEDS: FLUCONAZOLE 100 MG TAB PO SCH (08:27)
[2019-12-21] MEDS: PIPER/TAZO/NS 3.375gm 3.375 GM/100 ML BAG IVPB SCH ×2 (08:28→17:06)
[2019-12-21] MEDS: IRON SUCROSE 100 MG in NA CHLORIDE 0.9% 100 ML IV SCH (08:30)
[2019-12-21] MEDS: NYSTATIN PWDR 100000 UNIT/GM TOP SCH ×2 (08:30→21:46)
--- NOTE | 2019-12-21 09:50 | PN ---
Date of Progress Note: 12/20/2019 Chief Complaint: Elevated BUN and creatinine. Subjective: The patient has multiple medical problems and history of hypertension, coronary artery disease, status post PCI. He came to the hospital because of generalized weakness. He was found to have hypotension and leukocytosis. His creatinine level was found to be elevated up to 1.5. The patient denies fever, chills, nausea, vomiting, diarrhea. The patient was found to have acute kidney injury due to prerenal azotemia and nonoliguric acute tubular necrosis. The patient had a Liz catheter placed to monitor urine output. Lisinopril was taken off because of acute kidney injury. The patient received gentle hydration. The patient was treated with antibiotics for septic shock with urinary tract infection and cellulitis. Review of Systems: The patient is feeling better. Denies PND or orthopnea. Physical Examination: Lungs: Diminished breath sounds at bases. Heart: S1 and S2. ABDOMEN: Soft, benign. Extremities: No edema. Laboratory Data: Hemoglobin 9.5, WBC 8.4, platelet count 385,000. Sodium 138, potassium 4.7, chloride 111, CO2 20, BUN 24, creatinine 1.02, glucose 155. Impression And Plan: 1. Acute kidney injury due to prerenal azotemia, renal hypoperfusion. MIKE inhibitor was taken off because of acute kidney injury. Avoid nephrotoxic medication. Continue adequate hydration. 2. History of coronary artery disease. The patient is undergoing cardiac workup. Cardiology consultation was requested. 3. Hypertension. Continue to monitor blood pressure. Adjust medication for blood pressure control. 4. Sepsis hypotension. The patient is on antibiotics. Continue antibiotic renal dose. 5. Possible bladder outlet obstruction. The patient had a Liz catheter. Monitor urine output. Bladder scan is needed. i spent total 34 min including 24 min to coordinate care plan. TASHA/THUAN Voice ID: [id number] Report ID: [id number] MAXIMUS
[2019-12-21 10:19] LABS: Anisocytosis 1+; Blood Morphology Comment NOTED (NOT SEEN); Ovalocytes 1+; Platelet Estimate ADEQ; White Blood Cell Scan OK (OK)
--- NOTE | 2019-12-21 12:19 | P.PN ---
Subjective Date of Service: 12/21/19 Chief Complaint: Weakness, fall Patient doing better; awaiting skin grafting in the morning. Patient unsure as to what type of skin graft. Will touch base with hand surgery. Patient states that he had a prior skin graft that didn't take and he required a wound vacuum afterwards to help with the healing. HR improved. Review of Systems 10-point ROS is otherwise unremarkable Physical Examination - Vital Signs Temperature: 98.4 F Blood Pressure: 136/71 Pulse: 69 Respirations: 16 Pulse Ox (%): 99 - Physical Exam General: Alert, In no apparent distress, Oriented x3 Respiratory: Clear to auscultation bilaterally, Normal air movement Cardiovascular: Regular rate/rhythm, Normal S1 S2, No murmurs Gastrointestinal: Normal bowel sounds, Soft and benign, Non-distended, No tender ness Musculoskeletal: No clubbing, No swelling, No tenderness Neurological: Sensation intact, Cranial nerves 3-12 intact - Studies Medications List Reviewed: Yes Assessment & Plan - Problems (Diagnosis) (1) Anemia due to blood loss Current Visit: Yes Status: Acute (2) CAD (coronary artery disease) Current Visit: Yes Status: Acute (3) Cancer of skin of back Current Visit: Yes Status: Acute (4) Hypoalbuminemia Current Visit: Yes Status: Acute (5) Coagulopathy Current Visit: Yes Status: Acute (6) Basal cell carcinoma (BCC) of back Current Visit: Yes Status: Acute - Plan Plan: 1. Monitor hemodynamics closely; H&H stable 2. Skin graft in AM 3. Continue cardiac meds for rate control 4. Increase nutrition 5. Monitor albumin and coagulopathy 6. HR controlled 7. GI and DVT prophylaxis Discharge Plan: Home Plan to discharge in: Greater than 2 days - Advance Directives Does patient have a Living Will: Yes Does patient have a Durable POA for Healthcare: Yes - Code Status/Comfort Care Code Status: Full Code Physician Review: Patient Assessed, Agree with Above Assessment and Plan Critical Care: No Time Spent Managing PTS Care (In Minutes): 35
[2019-12-21] MEDS: Ringers Lactate 1,000 ML IV SCH ×3 (13:00→14:27)
[2019-12-21] MEDS: MORPHINE 2 MG/ML SYR IV PRN (13:52)
--- NOTE | 2019-12-21 14:32 | PN ---
Date of Progress Note: 12/21/2019 Subjective: The patient was admitted with acute kidney injury secondary to prerenal. The patient's after hydration kidney function started improving. The patient had coronary artery disease and hypertension. Blood pressure has been stabilized. Physical Examination: Vital Signs: When I saw the patient, blood pressure 136/71, pulse of 69, afebrile. Chest: Clear to auscultation. Heart: S1, S2. Systolic murmur. Abdomen: Soft, nontender. Extremity: No edema. Neurologic: Alert, nonfocal. Laboratory Data: Sodium 142, potassium 4.5, bicarb 21, BUN 25, creatinine 1.1, GFR of 64, calcium 7.7. Urinalysis; specific gravity of 1.020, WBC more than 50. Culture negative. Current Medications: The patient on its include IV iron, breathing treatment, fluconazole, Zosyn every 12 hours, digoxin, metoprolol, LR at 75 per hour, morphine. Assessment And Plan: 1. Acute kidney injury secondary to prerenal, recovered, resolved. I am going to continue the patient on current hydration. We will increase IV fluid to 100 and we will monitor the patient. 2. Hypertension, controlled, optimal. Hypotension has been resolved. 3. Acidosis secondary to renal failure, resolved. 4. Sepsis. Continue current antibiotic. I am going to go ahead and adjust Zosyn to every 8 hours. 5. Questionable of obstructive uropathy. We will follow up with the primary. Continue current treatment. We will start bladder training. time spend to coordinate the care , speaking with other Physician and team staff , face to face with the patient and placing order 35 min GARY Voice ID: [id number] Report ID: [id number] MAXIMUS
--- NOTE | 2019-12-21 19:01 | PN ---
Date of Progress Note: 12/21/2019 Mr. Dorantes has been followed for paroxysmal atrial fibrillation. Yesterday, we doubled his metopr olol to 25 b.i.d. Today, he is in sinus rhythm. No complaint. He initially had a skin lesion remov ed from his back and he was cleared for that. He is asymptomatic from a cardiac standpoint. He is o n Lovenox, which we will hold after today. On 12/22/2019, he is undergoing skin grafting to his prev ious surgery site. Echocardiogram is pending. TSH is pending. We will continue his present regimen . He will be on beta-blockers. Since he is asymptomatic, I think rate control should be the goal, h e should also go home on Xarelto or Eliquis, and we will see him in the office in the next week or 2. I will continue to follow meanwhile. DENICE/THUAN Voice ID: [id number] Report ID: [id number]
--- NOTE | 2019-12-21 20:03 | EKG ---
Test Date: 2019-12-20 Test Time: 00:49:40 Warehouse Team Member: RT-O MEASUREMENT RESULTS: Intervals: Rate: 120 IN: 160 QRSD: 126 QT: 366 QTc: 517 [place]: P: IN: 160 QRS: 86 T: 52 INTERPRETIVE STATEMENTS: Sinus tachycardia with premature atrial complexes with aberrant conduction Right bundle branch block Abnormal ECG Compared to ECG 12/18/2019 14:09:03 Atrial premature complex(es) now present Aberrant conduction of supraventricular beat(s) now present Atrial fibrillation no longer present Ventricular premature complex(es) no longer present Electronically Signed On 12-21-19 19:59:37 CDT by Dre Moreira
--- NOTE | 2019-12-21 20:05 | EKG ---
Test Date: 2019-12-18 Test Time: 14:09:03 Director Of Strategic Sourcing: APPLE MEASUREMENT RESULTS: Intervals: Rate: 106 ND: QRSD: 118 QT: 384 QTc: 510 [place]: P: ND: QRS: 93 T: 57 INTERPRETIVE STATEMENTS: Atrial fibrillation with rapid ventricular response with premature ventricular or aberrantly conducted complexes Right bundle branch block Abnormal ECG Electronically Signed On 12-21-19 19:59:49 CDT by Dre Moreira
[2019-12-22] MEDS: PIPER/TAZO/NS 3.375gm 3.375 GM/100 ML BAG IVPB SCH ×3 (00:49→17:00)
[2019-12-22] MEDS: Ringers Lactate 1,000 ML IV SCH ×3 (00:49→23:07)
--- NOTE | 2019-12-22 03:27 | PN ---
The patient's back is not bleeding. We are planning surgery tomorrow. I discussed the case with the pathologist. He will have the report by tomorrow. We will plan on doing excision with margins and the skin graft for frozen sections. YOUNG/THUAN Voice ID: [id number] Report ID: [id number]
[2019-12-22 06:20] LABS: Absolute Lymphocytes (CBC) 2.1 K/uL (0.7-4.9); Basophils % 0.2 % (0-1.3); Hematocrit 29.3 % (39.6-49.0); Lymphocytes % 28.2 % (15.3-44.8); MPV 7.3 fL (7.6-11.3); RBC Red Blood Cell Count 4.01 M/uL (4.33-5.43)
[2019-12-22 06:30] LABS: Albumin 1.8 g/dL (3.4-5.0); Bilirubin Total 0.4 mg/dL (0.2-1.0); Potassium 4.6 mmol/L (3.5-5.1); Protein, Total 5.8 g/dL (6.4-8.2)
[2019-12-22] MEDS: METOPROLOL TAR 50 MG TAB PO SCH ×2 (06:32→17:17)
--- NOTE | 2019-12-22 08:35 | ECHO ---
HEIGHT: 6 ft 4 in WEIGHT: 217 lb 13.067 oz DATE OF STUDY: 12/21/[address]: Kingston Armstrong MD 2-DIMENSIONAL: YES M.MODE: YES DOPPLER: YES COLOR FLOW: YES TDS: YES PORTABLE: NO DEFINITY: NO BUBBLE STUDY: NO DIAGNOSIS: CEREBRAL VASCULAR ACCIDENT, RULE OUT VEGETATION CARDIAC HISTORY: CATHERIZATION: YES SURGERY: NO PROSTHETIC VALVE: NO PACEMAKER: NO MEASUREMENTS (cm) DIASTOLIC (NORMALS) SYSTOLIC (NORMALS) IVSd 1.0 (0.6-1.2) LA Diam 4.4 (1.9-4.0) LVEF 71% LVIDd 4.3 (3.5-5.7) LVIDs 2.6 (2.0-3.5) %FS 40% LVPWd 1.2 (0.6-1.2) Ao Diam (2.0-3.7) 2 DIMENSIONAL ASSESSMENT: RIGHT ATRIUM: NORMAL LEFT ATRIUM: DILATED RIGHT VENTRICLE: NORMAL LEFT VENTRICLE: NORMAL TRICUSPID VALVE: NORMAL MITRAL VALVE: NORMAL PULMONIC VALVE: NORMAL AORTIC VALVE: SCLEROSIS PERICARDIAL EFFUSION: NONE AORTIC ROOT: NORMAL LEFT VENTRICULAR WALL MOTION: NORMAL DOPPLER/COLOR FLOW: MILD MITRAL REGURGITATION. COMMENTS: NORMAL LEFT VENTRICULAR SIZE AND FUNCTION. NO MITRAL VALVE PROLAPSE. LEFT ATRIAL ENLARGEMENT. NO THROMBUS. NORMAL LEFT VENTRICULAR EJECTION FRACTION. ATRIAL FIBRILLATION NOTED. TECHNOLOGIST: Analisa MOREIRA
[2019-12-22] MEDS: FLUCONAZOLE 100 MG TAB PO SCH (09:00)
[2019-12-22] MEDS: NYSTATIN PWDR 100000 UNIT/GM TOP SCH ×2 (09:00→21:00)
[2019-12-22] MEDS: ENOXAPARIN 100 MG/ML SYR SQ SCH (09:00)
[2019-12-22] MEDS: IRON SUCROSE 100 MG in NA CHLORIDE 0.9% 100 ML IV SCH (09:40)
[2019-12-22] MEDS ORDERED: FENTANYL CITR 100 MCG/2 ML ONE (10:21)
[2019-12-22] MEDS ORDERED: MIDAZOLAM HCL 2 MG/2 ML INJ ONE (10:21)
[2019-12-22] MEDS ORDERED: Ringers Lactate 1,000 ML IV ONE ×2 (11:28→23:13)
[2019-12-22] MEDS ORDERED: MINERAL OIL, LITE 10 ML VIAL ONE (11:56)
[2019-12-22] MEDS ORDERED: LIDOCAINE 1% MPF 5 ML VIAL ONE (12:46)
[2019-12-22] MEDS ORDERED: propofoL 200 MG/20 ML VIAL IV ONE (12:46)
[2019-12-22] MEDS ORDERED: NS 0.9% VIAL 10 ML ONE ×2 (12:59→13:20)
[2019-12-22] MEDS ORDERED: EPHEDRINE SULF 50 MG/ML VIAL ONE (12:59)
[2019-12-22] MEDS ORDERED: Phenylephrine HCl 10 MG/ML 1 ML VIAL ONE (13:17)
[2019-12-22] MEDS ORDERED: KETOROLAC 30 MG/ML INJ ONE (13:22)
[2019-12-22] MEDS ORDERED: dexAMETHasone 10 MG/ML VIAL ONE (13:22)
[2019-12-22] MEDS ORDERED: ESMOLOL HCL 10 ML IV ONE (13:25)
[2019-12-22] MEDS ORDERED: ONDANSETRON 4 MG/2 ML VIAL ONE (13:28)
[2019-12-22] MEDS ORDERED: Mastisol Adhesive Liq ONE (13:46)
[2019-12-22] MEDS ORDERED: METOPROLOL TAR 25 MG TAB PO ONE (14:15)
[2019-12-22] MEDS ORDERED: METOPROLOL TARTRATE 5 MG/5 ML INJ IV ONE (14:41)
[2019-12-22] MEDS ORDERED: NA CHLORIDE 0.9% 500 ML IV ONE (16:00)
[2019-12-22] MEDS ORDERED: DIGOXIN 0.25 MG/ML AMP IV SCH (16:00)
[2019-12-22 16:01] LABS: Absolute Lymphocytes (CBC) 2.1 K/uL (0.7-4.9); Basophils % 0.2 % (0-1.3); Hematocrit 28.7 % (39.6-49.0); Lymphocytes % 17.7 % (15.3-44.8); MPV 7.2 fL (7.6-11.3); RBC Red Blood Cell Count 3.89 M/uL (4.33-5.43)
[2019-12-22] MEDS ORDERED: NA CHLORIDE 0.9% 250 ML ONE ×2 (16:46→19:46)
[2019-12-22] MEDS ORDERED: NA CHLORIDE 0.9% 1,000 ML ONE ×2 (16:53→20:00)
[2019-12-22] MEDS ORDERED: NOREPINEPHRINE 4mg/D5W 250mL 4 MG/250 ML BAG IV ONE (20:03)
[2019-12-22] MEDS: MORPHINE 2 MG/ML SYR IV PRN (20:45)
[2019-12-22 20:47] LABS: Hematocrit 29.2 % (39.6-49.0)
[2019-12-22] MEDS ORDERED: MORPHINE 2 MG/ML SYR ONE (20:50)
[2019-12-22 21:02] LABS: Absolute Lymphocytes (CBC) 3.6 K/uL (0.7-4.9); Basophils % 0.3 % (0-1.3); Lymphocytes % 19.7 % (15.3-44.8); MPV 7.2 fL (7.6-11.3); RBC Red Blood Cell Count 3.83 M/uL (4.33-5.43)
[2019-12-22] MEDS ORDERED: FENTANYL CITR 100 MCG/2 ML IV ONE (22:53)
--- NOTE | 2019-12-22 22:53 | OP ---
Surgeon: Gigi Perdomo MD Preoperative Diagnosis: Basal cell carcinoma of the back. Postoperative Diagnosis: Basal cell carcinoma of the back. Procedure Performed: Excision of basal cell carcinoma 12 x 2 cm and split- thickness skin graft 200sq cm. Anesthesia: General. Description Of Procedure: After satisfactory induction of general anesthesia, the back was prepped with Betadine scrub and painted with dry sterile drapes applied in the usual manner. The scalp was used to make elliptical incision from the 12 o'clock to 3 o'clock position and a larger lesion on the left back. The graft was then harvested from the lateral thigh, 38363dm of an inch thick, meshed to 1-1.5. After the donor site was completely debrided of soft tissue, then wound was then closed in layer. The skin was then stapled in place with socrates. dressed with Xeroform and foam rubber sponge and socrates. The patient tolerated the procedure well. Op site was placed with the donor site. YOUNG/THUAN Voice ID: [id number] Report ID: [id number] [employer]IMUS
[2019-12-22] MEDS ORDERED: DIGOXIN 0.25 MG/ML AMP ONE (23:11)
[2019-12-23] MEDS: DIGOXIN 0.25 MG/ML AMP IV SCH ×2 (00:30→05:58)
[2019-12-23] MEDS ORDERED: NA CHLORIDE 0.9% 250 ML IV SCH (01:00)
[2019-12-23] MEDS ORDERED: NA CHLORIDE 0.9% 250 ML IV ONE ×2 (01:04→04:41)
[2019-12-23] MEDS: PIPER/TAZO/NS 3.375gm 3.375 GM/100 ML BAG IVPB SCH ×3 (01:18→18:08)
[2019-12-23] MEDS ORDERED: NA CHLORIDE 0.9% 500 ML ONE (01:21)
--- NOTE | 2019-12-23 02:31 | DS ---
The patient was transferred from [facility] to the icu for bleeding. The dressing was removed. The graft was removed. There were multiple small points of the bleeding the blood clots were removed. The grafts were not salvageable. After a 5-minute wait, the wound was reexamined again electro cautery used. Then, Surgicel, 4x4s, and tape were applied. Hemoglobin is pending. He was transfused 2 units. His donor site has no signs of bleeding. YOUNG/THUAN Voice ID: [id number] Report ID: [id number] MTDIsaiah
[2019-12-23 05:58] LABS: Absolute Lymphocytes (CBC) 3.8 K/uL (0.7-4.9); Basophils % 0.2 % (0-1.3); Hematocrit 23.5 % (39.6-49.0); Lymphocytes % 20.9 % (15.3-44.8); MPV 7.2 fL (7.6-11.3); RBC Red Blood Cell Count 3.07 M/uL (4.33-5.43)
[2019-12-23] MEDS: METOPROLOL TAR 50 MG TAB PO SCH ×2 (06:00→18:00)
--- NOTE | 2019-12-23 06:01 | PN ---
Date of Progress Note: 12/22/2019 Subjective: Mr. Dorantes underwent skin graft surgery today. He did well with the procedure, did h ave some bleeding and some anemia, went back into rapid atrial fibrillation with hypotension. Blood pressure improved after IV digoxin and so did his heart rate. Lopressor 25 mg b.i.d. should be held. He has received Lovenox. Anticoagulation should be held now because of his bleeding and anemia nee d to be addressed. If he remains hypotensive with an elevated heart rate, the only option at this po int will be IV amiodarone for which he needs to go to the ICU. I discussed the case further with Dr. Gatica. If his heart rate improves and his blood pressure improved, switch him from Lopressor to the sotalol may be an option as well. I will continue to follow him. DENICE/THUAN Voice ID: [id number] Report ID: [id number]
[2019-12-23 06:04] LABS: Protime INR 1.23
[2019-12-23 06:19] LABS: Albumin 1.6 g/dL (3.4-5.0); Bilirubin Total 0.4 mg/dL (0.2-1.0); Magnesium 2.2 mg/dL (1.8-2.4); Phosphorus 4.3 mg/dL (2.5-4.9); Potassium 4.7 mmol/L (3.5-5.1); Protein, Total 4.8 g/dL (6.4-8.2)
[2019-12-23] MEDS: Ringers Lactate 1,000 ML IV SCH (07:00)
--- NOTE | 2019-12-23 08:00 | P.PN ---
Subjective Date of Service: 12/22/19 Patient came back from surgery was significant bleeding. We were hoping we could get it under control on the general medical floor. We spoke with Dr. Perdomo, who recommended holding pressure to get it under control. We held pressure and bleeding stopped temporarily. Patient has gone into atrial fibrill ation with rapid ventricular response. Patient's heart rate was in the 130s to 140s. Patient blood pressure was low as well-70/50s. Patient was given dose of digoxin. Patient's heart rate came down into the 90s. Patient blood pressure went up to 90/50. We went ahead and gave patient some FFPs as patient started bleeding once again. We held pressure again for 30 minutes to get control of the bleeding. Patient's blood pressure was not really improving even after the FFPs. We decided to go ahead and start a blood transfusion as well since patient continued to bleed. We held pressure for over 30 min at that time and we were able to get the bleeding to stop. By this time we had been holding pressure on and off for over an hr, so we went ahead and decided to move the patient to the intensive care unit. Once the patient got to the intensive care unit, patient started having active bleeding once again. The ICU nurse felt the patient had a pulsating bleeding. We notify Dr. Perdomo who came out, and was able to identify the bleeding and cauterized the bleeding. Patient's bleeding stopped. We will monitor the patient in the ICU overnight, and hopefully we can transfer back to the floor tomorrow morning if doing better. Review of Systems 10-point ROS is otherwise unremarkable Physical Examination - Vital Signs Temperature: 97.2 F Blood Pressure: 90/50 Pulse: 99 Respirations: 15 Pulse Ox (%): 100 - Physical Exam General: Alert, In no apparent distress, Oriented x3 HEENT: Atraumatic, PERRLA, EOMI Neck: Supple, JVD not distended Respiratory: Clear to auscultation bilaterally, Normal air movement Cardiovascular: Regular rate/rhythm, Normal S1 S2, No murmurs Gastrointestinal: Normal bowel sounds, Soft and benign, Non-distended, No tenderness Musculoskeletal: No clubbing, No swelling, No tenderness Integumentary: Other (on the back patient has 2 areas were skin grafts were apparently done. Patient has profuse bleeding from those areas) Neurological: Sensation intact, Cranial nerves 3-12 intact - Studies Medications List Reviewed: Yes Assessment & Plan - Problems (Diagnosis) (1) Anemia due to blood loss Current Visit: Yes Status: Acute (2) Atrial fibrillation with rapid ventricular response Current Visit: Yes Status: Acute (3) CAD (coronary artery disease) Current Visit: Yes Status: Acute (4) Cancer of skin of back Current Visit: Yes Status: Acute (5) Hypoalbuminemia Current Visit: Yes Status: Acute (6) Coagulopathy Current Visit: Yes Status: Acute (7) Basal cell carcinoma (BCC) of back Current Visit: Yes Status: Acute - Plan Plan: 1. Transfer to ICU 2. Repeat digoxin dosing 3. Continue with blood transfusion 2. s/p skin graft; appreciate Dr. Perdomo's assistance 3. Continue cardiac meds for rate control 4. Increase nutrition 5. PT evaluation 6. Monitor hemodynamics closely 7. GI and DVT prophylaxis Discharge Plan: Home - Advance Directives Does patient have a Living Will: Yes Does patient have a Durable POA for Healthcare: Yes - Code Status/Comfort Care Code Status: Full Code Physician Review: Patient Assessed, Agree with Above Assessment and Plan Critical Care: Yes Time Spent Managing PTS Care (In Minutes): 45
[2019-12-23] MEDS ORDERED: NOREPINEPHRINE 4 MG in D5W 250 ML IV PRN (08:01)
--- NOTE | 2019-12-23 08:23 | P.PN ---
Subjective Date of Service: 12/23/19 Patient is doing somewhat better today. Still not voiding adequately. Transfuse 1 unit of packed red blood cells. Continue to monitor H&H and hemodynamics. Continue with Levophed drip Review of Systems 10-point ROS is otherwise unremarkable Physical Examination - Vital Signs Temperature: 97.2 F Blood Pressure: 90/50 Pulse: 99 Respirations: 15 Pulse Ox (%): 100 - Physical Exam General: Alert, In no apparent distress, Oriented x3 Respiratory: Clear to auscultation bilaterally, Normal air movement Cardiovascular: Regular rate/rhythm, Normal S1 S2, Systolic murmur Gastrointestinal: Normal bowel sounds, Soft and benign, Non-distended, No tenderness Musculoskeletal: No clubbing, No swelling, No tenderness Neurological: Sensation intact, Cranial nerves 3-12 intact - Studies Medications List Reviewed: Yes Assessment & Plan - Problems (Diagnosis) (1) Anemia due to blood loss Current Visit: Yes Status: Acute (2) Atrial fibrillation with rapid ventricular response Current Visit: Yes Status: Acute (3) CAD (coronary artery disease) Current Visit: Yes Status: Acute (4) Cancer of skin of back Current Visit: Yes Status: Acute (5) Hypoalbuminemia Current Visit: Yes Status: Acute (6) Coagulopathy Current Visit: Yes Status: Acute (7) Basal cell carcinoma (BCC) of back Current Visit: Yes Status: Acute - Plan Plan: 1. Monitor H&H closely 2. Monitor cardiac rhythms 3. Continue with 1 unit of blood transfusion 2. s/p skin graft; appreciate Dr. Perdomo's assistance; to get skin graft completed on Friday 3. Continue cardiac meds for rate control 4. Increase nutrition 5. PT evaluation 6. Monitor hemodynamics closely; wean Levophed 7. GI and DVT prophylaxis - Advance Directives Does patient have a Living Will: Yes Does patient have a Durable POA for Healthcare: Yes - Code Status/Comfort Care Code Status: Full Code Physician Review: Patient Assessed, Agree with Above Assessment and Plan Critical Care: No Time Spent Managing PTS Care (In Minutes): 35
[2019-12-23] MEDS: Levofloxacin500mg IV 500 MG/100 ML BAG IV SCH (08:47)
[2019-12-23] MEDS ORDERED: Levofloxacin500mg IV 500 MG/100 ML BAG IV ONE (08:56)
[2019-12-23] MEDS ORDERED: PIPER/TAZO/NS 3.375gm 3.375 GM/100 ML BAG ONE ×2 (08:56→15:49)
[2019-12-23] MEDS ORDERED: NA CHLORIDE 0.9% 250 ML ONE (08:56)
[2019-12-23] MEDS: NYSTATIN PWDR 100000 UNIT/GM TOP SCH ×2 (09:00→21:00)
--- NOTE | 2019-12-23 10:04 | DS ---
The patient is in the ICU for bleeding last night. The dressing was changed. Electrocautery was use d for hemostasis. He is going to receive 1 unit of blood today. He is on a drip to maintain his pre ssure. Once he is off the Levophed, he will be transferred back to the floor. Planned surgery next Friday for skin graft closure. YOUNG/THUAN Voice ID: [id number] Report ID: [id number]
[2019-12-23] MEDS: NA CHLORIDE 0.9% 1,000 ML IV SCH (11:00)
--- NOTE | 2019-12-23 11:52 | PN ---
Date of Progress Note: 12/23/2019 Subjective: The patient was admitted with acute kidney injury secondary to prerenal, recovered. Than yesterday had significant bleed after surgery, required transfusion. His blood pressure drop. His kidney function bounce back. The patient had atrial fibrillation with RVR. Physical Examination: Vital Signs: Blood pressure of 102/50, pulse of 99, afebrile. Chest: Clear to auscultation. The patient on room air. Heart: S1 and S2. Tachy, regular. Abdomen: Soft, nontender. Extremities: No edema. Neurologic: Alert and oriented x3. No focal. Skin: Dressing on the back. Laboratory Data: WBC 18.2, H and H 7.6/23.5, platelet 407. Sodium 141, potassium 4.7, bicarb 23, BUN 31, creatinine 1.7, calcium 7.1, phos 4.3, magnesium 2.2. BNP 4000. Chest x-ray, mild congestion compared to previous chest x-ray. Current Medications: The patient on its include Zosyn, levothyroxine, Levaquin, IV iron, metoprolol 50 b.i.d., LR at 100. Assessment/plan: 1. Acute kidney injury secondary to prerenal, giving atrial fibrillation with rapid ventricular response. I need to rule out any atheroembolic. I am going to go ahead and get a new UA and get LDH with complement to rule it out and we will follow up. 2. I going to give the patient 500 of normal saline as bolus continue. LR to be discontinue and switch to normal saline. 3. Hypertension. Currently low blood pressure. Continue just metoprolol for rate control. 4. Urinary tract infection. Continue current antibiotic. 5. Wound and decubitus ulcer. Follow up with Surgery. 6. Anemia secondary to blood loss. Continue p.r.n. transfusion. We not going to give Lasix after transfusion today. 7. Hypovolemic shock. Continue resuscitation. He going to receive a transfusion today. 8. Atrial fibrillation with rapid ventricular response as by Cardiology. time spent to coordinate the care , discussing with other team meember the care , face to face with the patient and discussed the plan with patient , placing order 35 min LIDIA/THUAN Voice ID: [id number] Report ID: [id number] MTDIsaiah
--- NOTE | 2019-12-23 13:22 | PN ---
Date of Progress Note: 12/23/2019 Subjective: The patient has been followed by me for paroxysmal atrial fibrillation. He was transfer red to the ICU yesterday because of hypotension. His hemoglobin was 7.6 and has received a total of 4 units of blood products, packed red blood cells, last hemoglobin is pending. He is on Levaquin. He is on Levophed. His last blood pressure was 90/50. His echocardiogram is normal. His main bleedin g was because of the surgery on his back with a skin graft. Dr. Brown is following him in that re jason. He is not on any anticoagulation for now. Plan: We will have to deal with that down the road. We would like to state that his echocardiogram was perfectly normal. If his atrial fibrillation comes back on IV amiodarone. Hoping to wean off the Levophed today. I will discuss the case further with Dr. Gatica. DENICE/THUAN Voice ID: [id number] Report ID: [id number]
[2019-12-23] MEDS ORDERED: NA CHLORIDE 0.9% 1,000 ML ONE (15:49)
[2019-12-23] MEDS ORDERED: NOREPINEPHRINE 4mg/D5W 250mL 4 MG/250 ML BAG IV PRN (15:53)
[2019-12-23] MEDS: IRON SUCROSE 100 MG in NA CHLORIDE 0.9% 100 ML IV SCH (15:57)
[2019-12-23] MEDS ORDERED: NA CHLORIDE 0.9% 1,000 ML IV ONE (16:00)
--- NOTE | 2019-12-23 16:36 | RAD REPORT ---
EXAM DESCRIPTION: RAD - Chest Single View - 12/22/2019 11:58 pm CLINICAL HISTORY: 84 years Male picc line placement COMPARISON: December 18, 2019 TECHNIQUE: AP view of the chest was obtained. FINDINGS: Right peripheral catheter is now present with the tip seen at the atrial caval junction. N o pneumothorax. Cardiac silhouette is enlarged. Central vessels are not increased. Patient is rotated to the right. T ortuosity thoracic aorta. Surgical clips in region of mediastinum. Small right pleural effusion. Linear airspace opacity right hilar region. Patchy airspace opacity rig ht lung base. No infiltrate or effusion on left. IMPRESSION: Right peripheral catheter tip in region of atrial caval junction. No pneumothorax. Small right pleural effusion. Spiculated atelectatic change right mid and lower lung. Electronically signed by: Ann-Marie Lee MD 12/23/2019 12:07 AM CDT Due to temporary technical issues with the PACS/Fluency reporting system, reports are being signed by the in house radiologist without Review as a courtesy to ensure prompt reporting. The interpreting radiologist is fully responsible fo r the content of the report.
[2019-12-23] MEDS: MORPHINE 2 MG/ML SYR IV PRN (18:37)
[2019-12-23 18:49] LABS: Hematocrit 24.3 % (39.6-49.0)
[2019-12-23] MEDS ORDERED: MORPHINE 2 MG/ML SYR ONE (18:49)
[2019-12-23 19:08] LABS: Urine Appearance CLOUDY; Urine Bilirubin NEGATIVE (NEG); Urine Blood NEGATIVE (NEG); Urine Color DK YELLOW; Urine Glucose NEGATIVE (NEG); Urine Protein NEGATIVE (NEG); Urine Specific Gravity >=1.030 (1.005-1.030)
[2019-12-23 19:18] LABS: Urine Microscopic Reflex ORDER UMIC
[2019-12-23 19:30] LABS: Urine Bacteria <20 /HPF (NONE SEEN); Urine Culture Reflex Order REFLEXED; Urine Mucus 2+ /HPF (NONE SEEN); Urine RBC <5 /HPF (NONE SEEN)
[2019-12-23] MEDS ORDERED: D5W 250 ML IV ONE (20:11)
[2019-12-23] MEDS ORDERED: NOREPINEPHRINE 4 MG/4 ML VIAL ONE (20:11)
[2019-12-24] MEDS: PIPER/TAZO/NS 3.375gm 3.375 GM/100 ML BAG IVPB SCH ×3 (01:00→19:17)
[2019-12-24] MEDS ORDERED: NA CHLORIDE 0.9% 1,000 ML ONE (04:47)
[2019-12-24] MEDS: METOPROLOL TAR 50 MG TAB PO SCH ×2 (06:00→17:25)
[2019-12-24 06:04] LABS: Protime INR 1.15
[2019-12-24] MEDS: IRON SUCROSE 100 MG in NA CHLORIDE 0.9% 100 ML IV SCH ×2 (09:00→19:17)
[2019-12-24] MEDS: NYSTATIN PWDR 100000 UNIT/GM TOP SCH ×2 (09:00→21:00)
[2019-12-24] MEDS ORDERED: NA CHLORIDE 0.9% 500 ML IV ONE (09:28)
[2019-12-24] MEDS: Levofloxacin500mg IV 500 MG/100 ML BAG IV SCH (09:45)
[2019-12-24] MEDS ORDERED: PIPER/TAZO/NS 3.375gm 3.375 GM/100 ML BAG ONE ×2 (09:52→17:32)
[2019-12-24] MEDS ORDERED: Levofloxacin500mg IV 500 MG/100 ML BAG IV ONE (09:53)
[2019-12-24 11:07] LABS: Absolute Lymphocytes (CBC) 2.5 K/uL (0.7-4.9); Basophils % 0.5 % (0-1.3); Hematocrit 20.5 % (39.6-49.0); Lymphocytes % 23.7 % (15.3-44.8); MPV 7.2 fL (7.6-11.3); RBC Red Blood Cell Count 2.54 M/uL (4.33-5.43)
[2019-12-24 11:18] LABS: Magnesium 2.2 mg/dL (1.8-2.4); Phosphorus 2.6 mg/dL (2.5-4.9); Potassium 3.8 mmol/L (3.5-5.1)
--- NOTE | 2019-12-24 13:26 | P.PN ---
Subjective Date of Service: 12/24/19 Chief Complaint: Weakness, fall Subjective An 84-year-old man with past medical history of HTN on lisinopril , CAD S/P PCI, and back Basal cell carcinoma pt was refereed to MD Garcia, pt appointment was deferred due to COVID 19 pandemic pt presented for weakness in ER pt was hypotesnive with leucocytosis and Cr 1.5 Cr improved on IVF, pt had debridemt for back wounds, complicated with bleeding , also developed Afib with RVR, pt became oliguric and Cr up to 1.7 today Cr normalized , good UO will cont IVF for 1 more day cont mcgee 2 PRBC today scheduled for debridment next week Physical exam general: awake and alert NAD , Neck; Supple, No elevated JVD hear: RRR, normal S1,2 no murmur or rub Chest: CTAB, no rlaes or wheezes Abdomen: Soft , Nt Extremities No edema or ulcer A/p FELIPE due to dehydration +/ ATN resolved renal dose meds cont IVF for now back ulcer Cont ABx S/P debridement HAGMA possibly due to FELIPE if no improvement with tomorrows labs will add po Sodium bicarb HTN controlled cont hold meds SEGUNDO from chronic disease and wound blood loss S/P IV iron Afib with RVR now rate controlled on metoprolol not candiate for AC due to bleeding cardiology on board Physical Examination - Vital Signs Temperature: 98.3 F Blood Pressure: 148/49 Pulse: 82 Respirations: 18 Pulse Ox (%): 100 - Studies Microbiology Data (last 24 hrs): 12/18/19 14:40 Blood - Blood Aerobic Blood Culture - Final No growth in 5 days. 12/18/19 14:40 Blood - Blood Anaerobic Blood Culture - Final 12/18/19 14:34 Blood - Blood Aerobic Blood Culture - Final No growth in 5 days. 12/18/19 14:34 Blood - Blood Anaerobic Blood Culture - Final No growth in 5 days. Medications List Reviewed: Yes Assessment And Plan Physician Review: Patient Assessed, Agree with Above Assessment and Plan
[2019-12-24] MEDS: NA CHLORIDE 0.9% 1,000 ML IV SCH (13:40)
[2019-12-24] MEDS ORDERED: NA CHLORIDE 0.9% 250 ML ONE (14:11)
[2019-12-24 14:27] LABS: Anisocytosis 2+; Blood Morphology Comment NOTED (NOT SEEN); Platelet Estimate ADEQ; White Blood Cell Scan OK (OK)
[2019-12-25] MEDS: NA CHLORIDE 0.9% 1,000 ML IV SCH ×3 (01:37→16:04)
[2019-12-25] MEDS: PIPER/TAZO/NS 3.375gm 3.375 GM/100 ML BAG IVPB SCH ×3 (01:38→16:05)
[2019-12-25] MEDS ORDERED: PIPER/TAZO/NS 3.375gm 3.375 GM/100 ML BAG ONE ×2 (01:41→08:41)
[2019-12-25] MEDS ORDERED: NA CHLORIDE 0.9% 1,000 ML ONE (01:44)
--- NOTE | 2019-12-25 04:15 | PN ---
Date of Progress Note: 12/24/2019 Subjective: Mr. Dorantes had been followed for atrial fibrillation. Today, he is still in atrial f ibrillation, rate of 72, O2 saturations at 100%. He has received digoxin and his metoprolol has been held because of hypotension. He has significant amount of bleeding. Last hemoglobin was 6.8. He i s status post 7 units transfusions in total. His last creatinine was 1.13. His present regimen incl udes antibiotics. He is still on Levophed that is being weaned, metoprolol has not been given. He r emains on antibiotics including Levaquin and Zosyn. Dr. Perdomo is following him. Dr. Gomez is following him as well from a renal standpoint. I think his hypotension is certainly not related to his atrial fibrillation. I think it is related to bleeding and possibly sepsis. His echocardiogram was done on 12/21/2019, is normal with a normal ejection fraction and no thrombus. We will continue to follow him. No change in therapy for now. If his atrial fibrillation returns at a rapid rate, we will rather decide to cardiovert him or put him on IV amiodarone. NB/MODL Voice ID: [id number] Report ID: [id number]
[2019-12-25] MEDS: METOPROLOL TAR 50 MG TAB PO SCH ×3 (06:00→21:27)
[2019-12-25 06:36] LABS: Absolute Lymphocytes (CBC) 2.1 K/uL (0.7-4.9); Basophils % 0.3 % (0-1.3); Hematocrit 29.6 % (39.6-49.0); MPV 7.1 fL (7.6-11.3); RBC Red Blood Cell Count 3.57 M/uL (4.33-5.43)
[2019-12-25] MEDS: Levofloxacin500mg IV 500 MG/100 ML BAG IV SCH (08:35)
[2019-12-25] MEDS ORDERED: Levofloxacin500mg IV 500 MG/100 ML BAG IV ONE (08:41)
[2019-12-25] MEDS: NYSTATIN PWDR 100000 UNIT/GM TOP SCH ×2 (09:00→21:00)
--- NOTE | 2019-12-25 10:02 | P.PN ---
Subjective Date of Service: 12/24/19 Patient's hemoglobin dropped once again. Transfuse 2 units of packed red blood cells for hemoglobin of 6.8. Patient remains on Levophed drip. Will try to wean him off. Patient's urine output has increased as well. Will monitor urine output and hydrate to match urine output. Creatinine improving. Review of Systems 10-point ROS is otherwise unremarkable Physical Examination - Vital Signs Temperature: 97.2 F Blood Pressure: 90/50 Pulse: 99 Respirations: 15 Pulse Ox (%): 100 - Physical Exam General: Alert, In no apparent distress, Oriented x3 Respiratory: Clear to auscultation bilaterally, Normal air movement Cardiovascular: Regular rate/rhythm, Normal S1 S2, Systolic murmur Gastrointestinal: Normal bowel sounds, Soft and benign, Non-distended, No tenderness Musculoskeletal: No clubbing, No swelling, No tenderness Neurological: Normal strength at 5/5 x4 extr, Normal tone, Sensation intact, Cranial nerves 3-12 intact - Studies Medications List Reviewed: Yes Assessment & Plan - Problems (Diagnosis) (1) Anemia due to blood loss Current Visit: Yes Status: Acute (2) Atrial fibrillation with rapid ventricular response Current Visit: Yes Status: Acute (3) CAD (coronary artery disease) Current Visit: Yes Status: Acute (4) Cancer of skin of back Current Visit: Yes Status: Acute (5) Hypoalbuminemia Current Visit: Yes Status: Acute (6) Coagulopathy Current Visit: Yes Status: Acute (7) Basal cell carcinoma (BCC) of back Current Visit: Yes Status: Acute - Plan Plan: Continue with plan of care at this time: 1. Monitor H&H closely; hemoglobin decreased to 6.8. Will transfuse 2 units of packed red blood cells. 2. Monitor cardiac rhythms 3. Urine output increased. Will need to monitor and watch patient's intake with output to maintain improvement of renal function. 2. s/p skin graft; appreciate Dr. Perdomo's assistance; to get skin graft completed on Friday 3. Continue cardiac meds for rate control 4. Increase nutrition 5. PT evaluation 6. Monitor hemodynamics closely; wean Levophed off today 7. GI and DVT prophylaxis Discharge Plan: Home Plan to discharge in: Greater than 2 days - Advance Directives Does patient have a Living Will: Yes Does patient have a Durable POA for Healthcare: Yes - Code Status/Comfort Care Code Status: Full Code Physician Review: Patient Assessed, Agree with Above Assessment and Plan Critical Care: Yes Time Spent Managing PTS Care (In Minutes): 35
--- NOTE | 2019-12-25 10:04 | P.PN ---
Subjective Date of Service: 12/25/19 Patient doing better. We will transfer to the general medical floor. Weaned off of Levophed. Patient awaiting surgery on Friday. Review of Systems 10-point ROS is otherwise unremarkable Physical Examination - Vital Signs Temperature: 97.2 F Blood Pressure: 90/50 Pulse: 99 Respirations: 15 Pulse Ox (%): 100 - Physical Exam General: Alert, In no apparent distress, Oriented x3 Respiratory: Diminished, Crackles/rales Cardiovascular: Regular rate/rhythm, Normal S1 S2, No murmurs Gastrointestinal: Normal bowel sounds, Soft and benign, Non-distended, No tenderness Musculoskeletal: No clubbing, No swelling, No tenderness Integumentary: Other ( Dressing on back on 2 areas of basal cell carcinoma that were excised. Skin graft on the left leg with some fluid in a blister. Continue to monitor) Neurological: Sensation intact, Cranial nerves 3-12 intact, Abnormal strength - Studies Medications List Reviewed: Yes Assessment & Plan - Problems (Diagnosis) (1) Anemia due to blood loss Current Visit: Yes Status: Acute (2) Atrial fibrillation with rapid ventricular response Current Visit: Yes Status: Acute (3) CAD (coronary artery disease) Current Visit: Yes Status: Acute (4) Cancer of skin of back Current Visit: Yes Status: Acute (5) Hypoalbuminemia Current Visit: Yes Status: Acute (6) Coagulopathy Current Visit: Yes Status: Acute (7) Basal cell carcinoma (BCC) of back Current Visit: Yes Status: Acute (8) Status post skin graft Current Visit: Yes Status: Acute - Plan Plan: Continue with plan of care at this time: 1. Monitor H&H closely; hemoglobin stabilized. 2. Monitor cardiac rhythms; rate controlled; 3. Urine output improved; renal function stable. 4. s/p skin graft; appreciate Dr. Perdomo's assistance; to get skin graft completed on Friday 5. Continue cardiac meds for rate control 6. Increase nutrition 7. PT evaluation 8. Monitor hemodynamics closely; weaned Levophed off-transfer to the floor 9. GI and DVT prophylaxis Discharge Plan: Home Plan to discharge in: Greater than 2 days - Advance Directives Does patient have a Living Will: Yes Does patient have a Durable POA for Healthcare: Yes - Code Status/Comfort Care Code Status: Full Code Physician Review: Patient Assessed, Agree with Above Assessment and Plan Critical Care: No Time Spent Managing PTS Care (In Minutes): 35
[2019-12-25] MEDS ORDERED: KCL 20 MEQ/100 mL IVPB 20 MEQ/100 ML BAG IV ONE (10:15)
[2019-12-25] MEDS: IRON SUCROSE 100 MG in NA CHLORIDE 0.9% 100 ML IV SCH (16:04)
--- NOTE | 2019-12-25 17:29 | PN ---
Date of Progress Note: 12/25/2019 Subjective: Mr. Dorantes is followed for paroxysmal atrial fibrillation complicated by bleeding, an emia, and hypotension. Today, his blood pressure is 110/50. He is in sinus rhythm today with bigemi ny. His heart rate is 90. He is afebrile. His breathing rate is 16. His O2 saturation is 100%. L ast hemoglobin is 9.8, indicating no significant further bleeding. His last creatinine is 1.13. He is presently on antibiotics. His metoprolol is still being held. He is not a candidate for anticoag ulation. We will continue to monitor his heart rhythm. Resume low-dose Lopressor once he is able to tolerate it. Continue to monitor his hemoglobin. We will sign off his case today. If his atrial f ibrillation reoccurs, we should strongly consider amiodarone so his blood pressure will be an issue. I will be available for questions if the need arises. DENICE/THUAN Voice ID: [id number] Report ID: [id number]
--- NOTE | 2019-12-26 00:15 | PN ---
Date of Progress Note: 12/25/2019 Chief Complaint: Wcjlv-ym-kfigbcz kidney injury. Renal function is gradually improving. The patien t has history of multiple medical problems, including coronary artery disease, status post PCI, basal cell carcinoma of the back, hypertension, controlled with lisinopril, the patient was referred to MD Garcia for appointment, although it was deferred due to COVID-19 pandemic. He presented to the ER because of generalized weakness, was found to have hypotension, leukocytosis was elevated, creatinin e level was up to 1.5. The patient became oliguric and creatinine was up to 1.7 when he developed at rial fibrillation with rapid ventricular response. Creatinine level is improving. Urine output is adequate. Review of Systems: Denies PND or orthopnea. Physical Examination: Lungs: Diminished breath sounds at bases. Heart: S1 and S2. Abdomen: Soft, benign. Extremities: No edema. Impression And Plan: 1.Ewmwl-an-zgdrbnf kidney injury due to prerenal azotemia. Continue adequate hydration by mouth. T he patient is on blood pressure medication, adjust medication for adequate blood pressure control. 2.Metabolic acidosis. Monitor electrolytes and consider sodium bicarbonate. Monitor electrolytes a nd renal panel, next test will be done tomorrow morning. 3.Cardiac arrhythmia. The patient is on metoprolol for rate control, bacteremia screen was obtained and showed no growth on blood cultures over last 5 days. TASHA/MODL Voice ID: [id number] Report ID: [id number]
[2019-12-26] MEDS: PIPER/TAZO/NS 3.375gm 3.375 GM/100 ML BAG IVPB SCH ×3 (01:50→16:44)
[2019-12-26] MEDS: NA CHLORIDE 0.9% 1,000 ML IV SCH ×2 (05:40→20:42)
[2019-12-26] MEDS: METOPROLOL TAR 50 MG TAB PO SCH ×2 (06:13→17:47)
[2019-12-26] MEDS: Levofloxacin500mg IV 500 MG/100 ML BAG IV SCH (07:19)
[2019-12-26] MEDS: NYSTATIN PWDR 100000 UNIT/GM TOP SCH ×2 (07:20→20:41)
[2019-12-26] MEDS: IRON SUCROSE 100 MG in NA CHLORIDE 0.9% 100 ML IV SCH (16:36)
[2019-12-26 18:14] LABS: Absolute Lymphocytes (CBC) 2.3 K/uL (0.7-4.9); Basophils % 1.3 % (0-1.3); Hematocrit 28.9 % (39.6-49.0); Lymphocytes % 18.7 % (15.3-44.8); MPV 7.4 fL (7.6-11.3); RBC Red Blood Cell Count 3.44 M/uL (4.33-5.43)
[2019-12-27] MEDS: PIPER/TAZO/NS 3.375gm 3.375 GM/100 ML BAG IVPB SCH ×3 (01:00→16:11)
[2019-12-27 04:44] LABS: Absolute Lymphocytes (CBC) 2.2 K/uL (0.7-4.9); Basophils % 0.5 % (0-1.3); Hematocrit 27.9 % (39.6-49.0); Lymphocytes % 30.1 % (15.3-44.8); MPV 7.3 fL (7.6-11.3); RBC Red Blood Cell Count 3.31 M/uL (4.33-5.43)
[2019-12-27 04:58] LABS: Potassium 3.8 mmol/L (3.5-5.1)
[2019-12-27] MEDS: METOPROLOL TAR 50 MG TAB PO SCH ×2 (05:54→16:59)
[2019-12-27] MEDS: NA CHLORIDE 0.9% 1,000 ML IV SCH ×2 (06:17→16:59)
--- NOTE | 2019-12-27 06:20 | P.PN ---
Subjective Date of Service: 12/26/19 patient continues to do well. He has some bleeding from the skin graft area. There is also a blister and head area with some fluid in there. Dr. Perdomo aware. family also wants to talk with him prior to surgery on Friday. They are wanting to wait if possible because they feel he had a rough time his last procedure. otherwise, patient is feeling much better. He ate well and work with physical therapy. His strength is improved. Monitor his respiratory status as he did get a significant amount of blood transfusion last week. He does not really appear to be volume overloaded but could diurese him if his blood pressure becomes more elevated. Review of Systems 10-point ROS is otherwise unremarkable Physical Examination - Vital Signs Temperature: 97.2 F Blood Pressure: 90/50 Pulse: 99 Respirations: 15 Pulse Ox (%): 100 - Physical Exam General: Alert, In no apparent distress, Oriented x3 Respiratory: Crackles/rales Cardiovascular: Regular rate/rhythm, Normal S1 S2 Gastrointestinal: Normal bowel sounds, Soft and benign, Non-distended Musculoskeletal: No clubbing, No swelling Integumentary: Other ( Patient with skin graft with blister on the left that had some bleeding. Patient with 2 areas where basal cell with exciting skin graft placed on the back.) Neurological: Sensation intact, Cranial nerves 3-12 intact, Abnormal strength - Studies Medications List Reviewed: Yes Assessment & Plan - Problems (Diagnosis) (1) Anemia due to blood loss Current Visit: Yes Status: Acute (2) Atrial fibrillation with rapid ventricular response Current Visit: Yes Status: Acute (3) CAD (coronary artery disease) Current Visit: Yes Status: Acute (4) Cancer of skin of back Current Visit: Yes Status: Acute (5) Hypoalbuminemia Current Visit: Yes Status: Acute (6) Coagulopathy Current Visit: Yes Status: Acute (7) Basal cell carcinoma (BCC) of back Current Visit: Yes Status: Acute (8) Status post skin graft Current Visit: Yes Status: Acute - Plan Plan: Continue with plan of care at this time: 1. Monitor H&H closely; hemoglobin stabilized. 2. Monitor cardiac rhythms; rate controlled; 3. Urine output improved; renal function stable. decrease IV fluids. Monitor volume status closely 4. s/p skin graft; appreciate Dr. Perdomo's assistance; to get skin graft completed on Friday 5. Continue cardiac meds for rate control; Holding aspirin and statin therapy 6. Increased nutrition; states he is feeling stronger 7. PT evaluation appreciated 8. Monitor hemodynamics closely; weaned Levophed off-transfer to the floor 9. GI and DVT prophylaxis Discharge Plan: Home Plan to discharge in: Greater than 2 days - Advance Directives Does patient have a Living Will: Yes Does patient have a Durable POA for Healthcare: Yes - Code Status/Comfort Care Code Status: Full Code Physician Review: Patient Assessed, Agree with Above Assessment and Plan Critical Care: No Time Spent Managing PTS Care (In Minutes): 35
[2019-12-27] MEDS: DIGOXIN 0.25 MG TABLET PO SCH ×2 (08:36→08:38)
--- NOTE | 2019-12-27 11:19 | DS ---
The patient is afebrile. The wound is dry. We are planning to close it tomorrow with skin graft if afebrile. N.p.o. at midnight. MOLLY Voice ID: [id number] Report ID: [id number]
--- NOTE | 2019-12-27 11:53 | DS ---
The patient is in ICU. He is off his drip. He will be transferred for the dressing change. The ski n is still intact in the trauma prior to his wound change. No signs of bleeding. Planned surgery on Friday. YOUNG/THUAN Voice ID: [id number] Report ID: [id number]
--- NOTE | 2019-12-27 15:37 | P.PN ---
Subjective Date of Service: 12/27/19 Chief Complaint: Weakness, fall Subjective: Improving, Doing well Physical Examination - Vital Signs Temperature: 98.2 F Blood Pressure: 123/54 Pulse: 61 Respirations: 20 Pulse Ox (%): 100 - Physical Exam General: Alert, Cooperative HEENT: Atraumatic Neck: Supple Respiratory: Clear to auscultation bilaterally, Normal air movement Cardiovascular: Normal pulses, Regular rate/rhythm Gastrointestinal: Normal bowel sounds, Soft and benign, Non-distended Neurological: Normal speech, Normal strength at 5/5 x4 extr, Normal tone, Normal affect - Studies Medications List Reviewed: Yes Assessment & Plan Discharge Plan: Home Plan to discharge in: 48 Hours Physician Review Additional Text: Impression: Sepsis secondary to cellulitis complicated with basis cell carcinoma of the back with debridement Atrial fibrillation with RVR CAD Anemia status post surgery Plan: Case reviewed in detail. Continue current medications. Hold aspirin and Plavix. Plastic surgery to possibly complete skin graft on Friday. Patient and family have multiple questions for plastic surgery. Will discuss further. Review medications. Continue with metoprolol. Patient also on digoxin. Will monitor electrolytes. Will discuss with plastic surgery in family about plan of care for possible discharge in the next 2 days. Time Spent Managing Pts Care (In Minutes): 55
--- NOTE | 2019-12-27 16:08 | PN ---
Date of Progress Note: 12/26/2019 Chief Complaint: Acute on chronic kidney injury and nonoliguric renal function, which has been impro ving. Subjective: The patient has multiple medical problems including coronary artery disease, status post PCI and basal cell carcinoma of the back, hypertension controlled with lisinopril. The patient was referred to MD Garcia for appointment, although he was referred due to COVID-19 pandemic. The godwin ent came to the emergency room because of shortness of breath, generalized weakness. He is admitted to the hospital for congestive heart failure with diastolic and systolic dysfunction. Renal function is stabilizing. Acute kidney injury is gradually improving. No PND and no orthopnea. Physical Examination: Lungs: Diminished breath sounds at bases. Heart: S1, S2. Abdomen: Soft, benign. Extremities: No edema. Impression And Plan: 1.Acute on chronic kidney injury with prerenal azotemia. Continue adequate hydration by mouth. Ralph id nephrotoxic medication. Monitor blood pressure. 2.Metabolic acidosis. Monitor electrolytes. Consider sodium bicarbonate drip. Monitor blood press ure and adjust medication for adequate blood pressure control. 3.Cardiac arrhythmia. Continue metoprolol for rate control. 4.Bacteremia screen was obtained and showed no growth on blood culture over last 5 days. TASHA/THUAN Voice ID: [id number] Report ID: [id number]
[2019-12-27] MEDS: ATORVASTATIN 10 MG TAB PO SCH (20:34)
[2019-12-28] MEDS: PIPER/TAZO/NS 3.375gm 3.375 GM/100 ML BAG IVPB SCH ×3 (00:07→17:41)
--- NOTE | 2019-12-28 05:20 | PN ---
Date of Progress Note: 12/27/2019 Chief Complaint: Acute on chronic kidney injury, nonoliguric renal function. Subjective: The patient has been treated with IV fluids although he was found to have congestive hea rt failure and IV fluids were switched to by mouth hydration. The patient was found to have metaboli c acidosis. Bicarbonate level has improved. Review of Systems: Denies PND or orthopnea. Physical Examination: Lungs: Clear to auscultation bilaterally. Heart: S1, S2. Abdomen: Soft, benign. Extremities: No edema. Impression And Plan: 1.The patient is admitted to the hospital for congestive heart failure with systolic and diastolic d ysfunction. Renal function is stabilizing. Acute kidney injury is gradually resolving. Avoid nephr otoxic medication. 2.Metabolic acidosis, overall improved. Monitor electrolytes and consider bicarbonate replacement a s needed. 3.Bacteremia. Screening was obtained and showed no growth. Blood culture is negative over last 5 d ays. CORDOVA/THUAN Voice ID: [id number] Report ID: [id number]
[2019-12-28] MEDS: METOPROLOL TAR 50 MG TAB PO SCH ×2 (05:52→17:41)
[2019-12-28 08:00] LABS: Absolute Lymphocytes (CBC) 1.6 K/uL (0.7-4.9); Hematocrit 28.1 % (39.6-49.0); Lymphocytes % 21.7 % (15.3-44.8); MPV 7.7 fL (7.6-11.3); RBC Red Blood Cell Count 3.29 M/uL (4.33-5.43)
[2019-12-28 08:09] LABS: Potassium 3.7 mmol/L (3.5-5.1)
[2019-12-28] MEDS: DIGOXIN 0.25 MG TABLET PO SCH (08:43)
[2019-12-28] MEDS ORDERED: lisinopriL 10 MG TAB PO SCH (09:00)
[2019-12-28] MEDS ORDERED: MINERAL OIL, LITE 10 ML VIAL ONE (09:25)
[2019-12-28] MEDS ORDERED: FENTANYL CITR 100 MCG/2 ML ONE (09:37)
[2019-12-28] MEDS ORDERED: ONDANSETRON 4 MG/2 ML VIAL ONE ×2 (09:38→12:00)
[2019-12-28] MEDS ORDERED: LIDOCAINE 2% MPF 5 ML VIAL ONE (09:38)
[2019-12-28] MEDS ORDERED: propofoL 200 MG/20 ML VIAL IV ONE (09:38)
[2019-12-28] MEDS ORDERED: EPHEDRINE SULF 50 MG/ML VIAL ONE (10:12)
[2019-12-28] MEDS: MINERAL OIL, LITE 10 ML VIAL ONE ×2 (10:32→11:00)
[2019-12-28] MEDS ORDERED: Mastisol Adhesive Liq ONE (11:06)
[2019-12-28] MEDS: MEPERIDINE HCL 25 MG/ML SYR ONE ×2 (11:50→12:01)
[2019-12-28] MEDS: NA CHLORIDE 0.9% 1,000 ML IV SCH (13:02)
--- NOTE | 2019-12-28 13:51 | P.PN ---
Subjective Date of Service: 12/28/19 Chief Complaint: Weakness, fall Subjective: Improving Physical Examination - Vital Signs Temperature: 97.7 F Blood Pressure: 118/58 Pulse: 60 Respirations: 18 Pulse Ox (%): 95 - Physical Exam General: Alert, Cooperative HEENT: Atraumatic Neck: Supple Respiratory: Clear to auscultation bilaterally, Normal air movement Cardiovascular: Normal pulses, Regular rate/rhythm Integumentary: Other (Bandages to the back in place.) Neurological: Normal speech, Normal strength at 5/5 x4 extr, Normal tone - Studies Medications List Reviewed: Yes Assessment & Plan Discharge Plan: Home Plan to discharge in: Greater than 2 days Physician Review Additional Text: Impression: Sepsis secondary to cellulitis complicated with 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 Plastic surgery plans to take the patient back to the operating room for skin graft. This was discussed in detail with the patient. Patient understands the risks and benefit of this. This was also address with other family members who desire the possible need for transfer. The patient is of sound mind and able to make his own decisions. He wishes to have this procedure done here. Will continue with monitoring of lab closely. Continue with treatment. Plastic surgery as mentioned above plans for skin graft. Patient will remain in the hospital for at least 5 days to make sure everything has remained stable. Atrial fibrillation with RVR: Continue with beta-emily therapy. No need for anti coagulation therapy. Patient now normal sinus rhythm. CAD: Overall stable. Anemia status post surgery: Patient did receive transfusion. Hemoglobin now stable. Will monitor closely. Time Spent Managing Pts Care (In Minutes): 55
[2019-12-28] MEDS: ATORVASTATIN 10 MG TAB PO SCH (19:44)
[2019-12-28] MEDS: MORPHINE 2 MG/ML SYR IV PRN (19:45)
[2019-12-29] MEDS: MORPHINE 2 MG/ML SYR IV PRN (00:40)
[2019-12-29] MEDS: PIPER/TAZO/NS 3.375gm 3.375 GM/100 ML BAG IVPB SCH ×3 (00:40→17:36)
[2019-12-29 04:16] LABS: Absolute Lymphocytes (CBC) 1.2 K/uL (0.7-4.9); Basophils % 0.5 % (0-1.3); Hematocrit 27.5 % (39.6-49.0); Lymphocytes % 16.3 % (15.3-44.8); MPV 7.7 fL (7.6-11.3)
[2019-12-29 05:01] LABS: Magnesium 2.3 mg/dL (1.8-2.4); Potassium 3.8 mmol/L (3.5-5.1)
[2019-12-29] MEDS: METOPROLOL TAR 50 MG TAB PO SCH ×2 (05:59→17:34)
[2019-12-29] MEDS: DIGOXIN 0.25 MG TABLET PO SCH (08:55)
[2019-12-29] MEDS ORDERED: FERROUS SULFATE 325 MG TAB PO SCH (09:00)
[2019-12-29] MEDS ORDERED: POTASSIUM CL SA 10 MEQ TAB PO ONE (11:45)
--- NOTE | 2019-12-29 12:37 | PN ---
Date of Progress Note: 12/29/2019 Subjective: The patient was admitted with decubitus ulcer. The patient had acute kidney injury secondary to prerenal, recovered, resolved. Physical Examination: Vital Signs: Blood pressure 126/58, pulse of 74, afebrile. Chest: Clear to auscultation. Heart: S1, S2. Regular. Abdomen: Soft, nontender. Dressing on the back after debridement yesterday. Extremities: No edema. Neurologic: Alert. No focal. Laboratory Data: WBC 7.6, H and H 8.8/27.5. Sodium 141, potassium 3.8, bicarb 24, BUN 14, creatinine 1.1, GFR of 62, calcium 7.5, magnesium 2.3, TSH 1.5. Current Medications: The patient on include Zosyn, ferrous sulfate, digoxin, atorvastatin, metoprolol 25 , Zofran, IV fluid. Assessment And Plan: 1. Acute kidney injury secondary to prerenal, recovered, resolved. I am going to discontinue IV fluid. 2. Hypertension, controlled, optimal. Continue current medications. 3. Hypokalemia. We will supplement. 4. Cellulitis, decubitus ulcer. Follow up with ID. Follow up with Surgery. Dose of Zosyn appropriate. time spent to coordinate the care , discussing with other team meember the care , face to face with the patient and discussed the plan with patient , placing order 35 min GARY Voice ID: [id number] Report ID: [id number] [employer]IMUS
[2019-12-29] MEDS ORDERED: TRAMADOL HCL 50 MG TAB PO PRN (13:19)
[2019-12-29] MEDS ORDERED: HYDROCODONE/APAP 7.5/325 MG TAB PO PRN (13:19)
--- NOTE | 2019-12-29 13:23 | P.PN ---
Subjective Date of Service: 12/29/19 Chief Complaint: Weakness, fall Subjective: Improving, Doing well Physical Examination - Vital Signs Temperature: 98.4 F Blood Pressure: 126/58 Pulse: 74 Respirations: 16 Pulse Ox (%): 96 - Physical Exam General: Alert, Cooperative HEENT: Atraumatic Neck: Supple Respiratory: Clear to auscultation bilaterally, Normal air movement Cardiovascular: Normal pulses, Regular rate/rhythm Gastrointestinal: No tenderness, No masses, No rebound, No guarding Integumentary: Other (bandage to the back in place) Neurological: Normal speech, Normal strength at 5/5 x4 extr, Normal tone, Normal affect - Studies Medications List Reviewed: Yes Assessment & Plan Discharge Plan: Home Plan to discharge in: Greater than 2 days Physician Review Additional Text: Impression: Sepsis secondary to cellulitis complicated with 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 Patient seems to be doing fine. Hemoglob in stable at this time. Care discussed with family and patient. Will tried a ambulate with physical therapy. Discontinue Liz catheter. Continue with current wound care. Plastic surgery wants to continue to monitor over the next several days with possible discharge in 5 days in hope that skin graft takes well. Atrial fibrillation with RVR: Continue with beta-emily therapy. Patient remains in normal sinus rhythm. No need for anti coagulation therapy. CAD: Overall stable. Anemia on chronic with post operative anemia and noted iron deficiency: Hemoglobin remained stable. Will increase iron supplementation. Will monitor hemoglobin closely. Patient on SCD for prophylaxis. No anti coagulation at this time due to anemia. Acute renal injury, resolved: Renal function back to baseline. Case discussed with nephrology. No further intervention required. Time Spent Managing Pts Care (In Minutes): 55
[2019-12-29] MEDS: FERROUS SULFATE 325 MG TAB PO SCH ×2 (14:44→20:47)
--- NOTE | 2019-12-29 14:46 | DS ---
The patient's donor site has fluid which I expect. The recipient side is dry. We plan on looking in about 5 to 6 days. He is afebrile. We will plan on discharge probably on Friday. YOUNG/THUAN Voice ID: [id number] Report ID: [id number]
[2019-12-29] MEDS: ATORVASTATIN 10 MG TAB PO SCH (20:47)
[2019-12-30] MEDS: PIPER/TAZO/NS 3.375gm 3.375 GM/100 ML BAG IVPB SCH ×3 (01:15→17:33)
[2019-12-30] MEDS: METOPROLOL TAR 50 MG TAB PO SCH ×2 (05:12→17:33)
[2019-12-30 05:40] LABS: Absolute Lymphocytes (CBC) 1.6 K/uL (0.7-4.9); Basophils % 0.8 % (0-1.3); Hematocrit 29.2 % (39.6-49.0); Lymphocytes % 26.3 % (15.3-44.8); MPV 7.8 fL (7.6-11.3); RBC Red Blood Cell Count 3.39 M/uL (4.33-5.43)
[2019-12-30 06:35] LABS: Anisocytosis 3+; Blood Morphology Comment NOTED (NOT SEEN); Platelet Estimate ADEQ; White Blood Cell Scan OK (OK)
[2019-12-30] MEDS: FERROUS SULFATE 325 MG TAB PO SCH ×3 (09:01→20:10)
[2019-12-30] MEDS: DIGOXIN 0.25 MG TABLET PO SCH (09:01)
--- NOTE | 2019-12-30 11:57 | PN ---
Date of Progress Note: 12/30/2019 Subjective: The patient was admitted with acute kidney injury secondary to prerenal. The patient richards d decubitus ulcer, status post debridement. Physical Examination: Vital Signs: When I saw the patient, blood pressure 120/68, pulse of 63, afebrile. Chest: Clear to auscultation. Heart: S1, S2. Regular. Abdomen: Soft, nontender. Extremities: No edema. Neuro: No focality. Laboratory Data: WBC 6, H and H 9.6/29.2, platelets 222. Sodium 141, potassium 3.8, bicarb 24, BUN is 14, creatinine 1.1, GFR of 62, calcium 7.5, magnesium 2.3. Current Medications: The patient on include Zosyn, atorvastatin, digoxin, metoprolol, tramadol. Assessment And Plan: 1.Acute kidney injury secondary to prerenal, recovered, resolved. Off keep holding IV fluid. 2.Decubitus ulcer. Continue current antibiotic, dose appropriate. 3.Hypokalemia. We will supplement. 4.Acidosis secondary to renal failure, resolved. LIDIA/THUAN Voice ID: [id number] Report ID: [id number]
--- NOTE | 2019-12-30 14:31 | P.PN ---
Subjective Date of Service: 12/30/19 Chief Complaint: Weakness, fall Subjective: Improving, Doing well Physical Examination - Vital Signs Temperature: 98.1 F Blood Pressure: 150/64 Pulse: 57 Respirations: 17 Pulse Ox (%): 96 - Physical Exam General: Alert, In no apparent distress, Oriented x3, Cooperative HEENT: Atraumatic Neck: Supple Respiratory: Clear to auscultation bilaterally, Normal air movement Cardiovascular: Normal pulses, Regular rate/rhythm Gastrointestinal: Normal bowel sounds, No rebound, No guarding Integumentary: Other (Bandages in place.) - Studies Medications List Reviewed: Yes Assessment & Plan Discharge Plan: Home Plan to discharge in: Greater than 2 days Physician Review Additional Text: Impression: Sepsis secondary to cellulitis complicated with 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 Patient doing well on wound care per her plastic surgery. Continue monitor closely. Plastic surgery to reassess and 5-6 days with possible discharge at that time. Encourage ambulation. Will have physical therapy evaluate. Will set up home health and physical therapy at discharge. Patient will need PCP as well. Atrial fibrillation with RVR: Continue with beta-emily therapy. Patient remains in normal sinus rhythm. No need for anti coagulation therapy. CAD: Overall stable. Anemia on chronic with post operative anemia and noted iron deficiency: Hemoglobin remained stable. Continue iron supplementation. Continue to hold anti coagulation therapy at this time due to risk of bleeding. Acute renal injury, resolved: Renal function back to baseline. Case discussed with nephrology. No further intervention required. Time Spent Managing Pts Care (In Minutes): 55
[2019-12-30] MEDS: ATORVASTATIN 10 MG TAB PO SCH (20:10)
[2019-12-31] MEDS: PIPER/TAZO/NS 3.375gm 3.375 GM/100 ML BAG IVPB SCH ×3 (00:03→16:29)
[2019-12-31 05:26] LABS: Absolute Lymphocytes (CBC) 1.7 K/uL (0.7-4.9); Basophils % 0.9 % (0-1.3); Hematocrit 28.8 % (39.6-49.0); Lymphocytes % 27.2 % (15.3-44.8); MPV 7.7 fL (7.6-11.3); RBC Red Blood Cell Count 3.35 M/uL (4.33-5.43)
[2019-12-31] MEDS: METOPROLOL TAR 50 MG TAB PO SCH ×2 (05:53→16:59)
[2019-12-31] MEDS: DIGOXIN 0.25 MG TABLET PO SCH (08:09)
[2019-12-31] MEDS: FERROUS SULFATE 325 MG TAB PO SCH ×3 (08:10→19:46)
--- NOTE | 2019-12-31 09:18 | P.PN ---
Subjective Date of Service: 12/31/19 Chief Complaint: Weakness, fall Subjective: Improving, Doing well Physical Examination - Vital Signs Temperature: 97.8 F Blood Pressure: 148/67 Pulse: 63 Respirations: 18 Pulse Ox (%): 99 - Physical Exam General: Alert, In no apparent distress, Oriented x3, Cooperative HEENT: Atraumatic Neck: Supple Respiratory: Clear to auscultation bilaterally, Normal air movement Cardiovascular: Normal pulses, Regular rate/rhythm Gastrointestinal: Normal bowel sounds, No rebound, No guarding Integumentary: Other (Wounds to the back bandaged along with skin graft) Neurological: Normal speech, Normal strength at 5/5 x4 extr, Normal tone, Normal affect - Studies Medications List Reviewed: Yes Assessment & Plan Discharge Plan: Home Plan to discharge in: 72 Hours Physician Review Additional Text: Impression: Sepsis secondary to cellulitis complicated with 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 Plastic surgery reviewed skin graft yesterday. Plastic surgery please with progress. Continue to monitor closely. Encourage ambulation. Physical therapy ordered. Will arrange for home health and physical therapy at discharge along with new PCP. Anticipate discharge on Friday if agreeable with plastic surgery and good progress with skin graft. Atrial fibrillation with RVR: Continue with beta-emily therapy. Patient remains in normal sinus rhythm. No need for anti coagulation therapy. CAD: Overall stable. Anemia on chronic with post operative anemia and noted iron deficiency: Hemoglobin remained stable. Continue iron supplementation. Continue to hold anti coagulation therapy at this time due to risk of bleeding. Acute renal injury, resolved: Renal function back to baseline. Case discussed with nephrology. No further intervention required. Time Spent Managing Pts Care (In Minutes): 55
--- NOTE | 2019-12-31 13:11 | P.PN ---
Subjective Date of Service: 12/31/19 Chief Complaint: Weakness, fall Subjective An 84-year-old man with past medical history of HTN on lisinopril , CAD S/P PCI, and back Basal cell carcinoma pt was refereed to MD Garcia, pt appointment was deferred due to COVID 19 pandemic pt presented for weakness in ER pt was hypotesnive with leucocytosis and Cr 1.5 Cr improved on IVF, pt had debridemt for back wounds, complicated with bleeding , also developed Afib with RVR, pt became oliguric and Cr up to 1.7 today no overnight events stable VS Cr stable pending placement Physical exam general: awake and alert NAD , Neck; Supple, No elevated JVD hear: RRR, normal S1,2 no murmur or rub Chest: CTAB, no rlaes or wheezes Abdomen: Soft , Nt Extremities No edema or ulcer A/p FELIPE due to dehydration +/ ATN resolved renal dose meds back ulcer Cont ABx S/P debridement and graft placement HAGMA resolved HTN controlled cont hold meds SEGUNDO from chronic disease and wound blood loss completed IV iron Afib with RVR now rate controlled Physical Examination - Vital Signs Temperature: 97.6 F Blood Pressure: 114/53 Pulse: 69 Respirations: 20 Pulse Ox (%): 99 - Studies Medications List Reviewed: Yes Assessment And Plan Physician Review: Patient Assessed, Agree with Above Assessment and Plan
[2019-12-31] MEDS: ATORVASTATIN 10 MG TAB PO SCH (19:46)
[2020-01-01] MEDS: PIPER/TAZO/NS 3.375gm 3.375 GM/100 ML BAG IVPB SCH ×3 (00:14→17:14)
[2020-01-01 05:01] LABS: Absolute Lymphocytes (CBC) 1.8 K/uL (0.7-4.9); Basophils % 1.1 % (0-1.3); Hematocrit 28.4 % (39.6-49.0); Lymphocytes % 30.1 % (15.3-44.8); MPV 8.1 fL (7.6-11.3); RBC Red Blood Cell Count 3.27 M/uL (4.33-5.43)
[2020-01-01] MEDS: METOPROLOL TAR 50 MG TAB PO SCH ×2 (05:42→17:15)
[2020-01-01] MEDS: FERROUS SULFATE 325 MG TAB PO SCH ×3 (08:01→20:14)
[2020-01-01] MEDS: DIGOXIN 0.25 MG TABLET PO SCH ×2 (08:01→08:03)
--- NOTE | 2020-01-01 09:51 | P.PN ---
Subjective Date of Service: 01/01/20 Chief Complaint: Weakness, fall Subjective: Improving, Doing well Physical Examination - Vital Signs Temperature: 96.9 F Blood Pressure: 136/55 Pulse: 70 Respirations: 18 Pulse Ox (%): 99 - Physical Exam General: Alert, In no apparent distress, Oriented x3, Cooperative HEENT: Atraumatic Neck: Supple Respiratory: Clear to auscultation bilaterally, Normal air movement Cardiovascular: Normal pulses, Regular rate/rhythm Gastrointestinal: Normal bowel sounds, No masses, No rebound, No guarding Integumentary: Other (Bandages to the left lower extremity and back remain in place.) Neurological: Normal speech, Normal strength at 5/5 x4 extr, Normal tone, Normal affect - Studies Medications List Reviewed: Yes Assessment & Plan Discharge Plan: Home Plan to discharge in: 48 Hours Physician Review Additional Text: Impression: Sepsis secondary to cellulitis complicated with 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 Plastic surgery pleased with progress. Continue to monitor closely. Encourage ambulation. Physical therapy ordered. Will arrange for home health and physical therapy at discharge along with new PCP. Anticipate discharge on Friday if agreeable with plastic surgery and good progress with skin graft. Atrial fibrillation with RVR: Continue with beta-emily therapy. Patient remains in normal sinus rhythm. No need for anti coagulation therapy. CAD: Overall stable. Anemia on chronic with post operative anemia and noted iron deficiency: Hemoglobin remained stable. Continue iron supplementation. Continue to hold anti coagulation therapy at this time due to risk of bleeding. Acute renal injury, resolved: Renal function back to baseline. Case discussed with nephrology. No further intervention required. Time Spent Managing Pts Care (In Minutes): 55
[2020-01-01] MEDS ORDERED: POTASSIUM CL SA 10 MEQ TAB PO ONE (15:59)
[2020-01-01] MEDS: ATORVASTATIN 10 MG TAB PO SCH (20:14)
--- NOTE | 2020-01-01 21:07 | PN ---
Date of Progress Note: 01/01/2020 Subjective: The patient was admitted with acute kidney injury secondary to prerenal toxic ATN. Afte r hydration, kidney function has been normalized. The patient is status post debridement of decubitu s ulcer. Physical Examination: Vital Signs: Blood pressure 118/56, pulse of 57, afebrile. The patient had good urine output of 165 0. Chest: Clear to auscultation. Heart: S1 and S2, regular. Abdomen: Soft, nontender. Extremities: No edema. Neurologic: Alert, no focality. Skin: Has dressing on the decubitus area. Laboratory Data: WBC 6, H and H of 9.2 and 28.4. Sodium 141, potassium 3.8, bicarb 24, BUN 14, crea tinine 1.1, GFR of 62, calcium 7.5, magnesium 2.3. Current Medications: The patient on include Zosyn, ferrous sulfate, digoxin, metoprolol, hydrocodone , and tramadol. Assessment And Plan: 1.Acute kidney injury secondary to prerenal, on the recovery, normal volume. Keep holding IV fluid and we will monitor. 2.Hypertension, controlled optimal. Continue current medication. 3.Decubitus ulcer, status post debridement. We will follow up with the Surgery and ID. 4.Urinary tract infection. Continue current treatment. 5.Hypokalemia. We will supplement. LIDIA/THUAN Voice ID: [id number] Report ID: [id number]
[2020-01-02] MEDS: PIPER/TAZO/NS 3.375gm 3.375 GM/100 ML BAG IVPB SCH (00:26)
[2020-01-02] MEDS: METOPROLOL TAR 50 MG TAB PO SCH ×2 (05:55→16:59)
[2020-01-02 06:19] LABS: Absolute Lymphocytes (CBC) 1.5 K/uL (0.7-4.9); Basophils % 1.2 % (0-1.3); Hematocrit 28.4 % (39.6-49.0); Lymphocytes % 30.3 % (15.3-44.8); MPV 7.7 fL (7.6-11.3); RBC Red Blood Cell Count 3.28 M/uL (4.33-5.43)
[2020-01-02] MEDS: FERROUS SULFATE 325 MG TAB PO SCH ×3 (07:59→19:39)
[2020-01-02] MEDS: DIGOXIN 0.25 MG TABLET PO SCH (08:00)
--- NOTE | 2020-01-02 13:07 | PN ---
Date of Progress Note: 01/02/2020 Subjective: The patient was admitted with decubitus ulcer status post debridement, acute kidney inju ry secondary to toxic ATN and prerenal, recovered. Physical Examination: Vital Signs: Blood pressure 113/56, pulse of 79. The patient had good urine output of 1460 even bal ance. Chest: Clear to auscultation. Heart: S1, S2. Regular. Abdomen: Soft, nontender. Skin: Decubitus ulcer, dressing. Extremities: No edema. Neuro: No focality. Laboratory Data: WBC 4.9, H and H 9.3/28.4, platelets 201. Sodium 141, potassium 3.8, bicarb 24, BU N 14, creatinine 1.1, GFR of 62, calcium 7.5, magnesium 2.3. Current Medications: The patient on include; 1.Atorvastatin. 2.Digoxin. 3.Metoprolol 25 b.i.d. 4.Zofran. 5.Tramadol. 6.KCl. Assessment And Plan: 1.Acute kidney injury secondary to prerenal, recovered, resolved. 2.Hypertension, controlled, optimal. Continue metoprolol 25 b.i.d. 3.Decubitus ulcer status post debridement. Follow up with Surgery. 4.Urinary tract infection. Continue current treatment. 5.Deconditioning. Continue PT, OT. LIDIA/THUAN Voice ID: [id number] Report ID: [id number]
--- NOTE | 2020-01-02 14:50 | P.PN ---
Subjective Date of Service: 01/02/20 Chief Complaint: Weakness, fall Subjective: Doing well Physical Examination - Vital Signs Temperature: 97.8 F Blood Pressure: 113/56 Pulse: 57 Respirations: 15 Pulse Ox (%): 100 - Physical Exam General: Alert, In no apparent distress, Oriented x3, Cooperative HEENT: Atraumatic Neck: Supple Respiratory: Clear to auscultation bilaterally, Normal air movement Cardiovascular: Normal pulses, Regular rate/rhythm Gastrointestinal: Normal bowel sounds, No tenderness, No masses, No rebound, No guarding Integumentary: No warmth, No cyanosis, Other (Bandages to the back stable. 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 Continue wound care per Plastic surgery. Patient has done well. Hemoglobin now stable. Plastic surgery will reassess skin graft tomorrow. If stable patient can be discharged home tomorrow. Patient will need home health and physical therapy along with wound care at discharge. Patient to establish care with Dr. Girard at discharge. I will turn the service over to the hospitalist team tomorrow. I will go over the plan of care with him. Paroxysmal Atrial fibrillation with RVR: Continue with beta-emily therapy. Patient remains in normal sinus rhythm. No need for anti coagulation therapy. CAD: Overall stable. Anemia on chronic with post operative anemia and noted iron deficiency: Hemoglobin remained stable. Continue iron supplementation. Continue to hold anti coagulation therapy at this time due to risk of bleeding. Acute renal injury, resolved: Renal function back to baseline. Case discussed with nephrology. No further intervention required. Time Spent Managing Pts Care (In Minutes): 55
[2020-01-02] MEDS: ATORVASTATIN 10 MG TAB PO SCH (19:39)
[2020-01-03 04:52] LABS: Absolute Lymphocytes (CBC) 1.6 K/uL (0.7-4.9); Basophils % 0.9 % (0-1.3); Hematocrit 29.3 % (39.6-49.0); RBC Red Blood Cell Count 3.37 M/uL (4.33-5.43)
[2020-01-03] MEDS: METOPROLOL TAR 50 MG TAB PO SCH (05:06)
[2020-01-03] MEDS: FERROUS SULFATE 325 MG TAB PO SCH ×2 (08:00→13:24)
[2020-01-03] MEDS: DIGOXIN 0.25 MG TABLET PO SCH (08:00)
[2020-01-03 12:18] VITALS: BP 138/97; TEMP 98
[2020-01-03 15:16] VITALS: O2SAT 95
--- NOTE | 2020-01-04 01:28 | PN ---
Date of Progress Note: 01/03/2020 Subjective: The patient is admitted to the hospital because of acute kidney injury. He underwent de bridement of decubitus ulcer. Renal function has improved to baseline. The patient responded to IV fluids. Blood pressure is in good control. The patient is on metoprolol. Review of Systems: Denies PND or orthopnea. Physical Examination: Lungs: Diminished breath sounds at bases. Heart: S1, S2. Abdomen: Soft, benign. Extremities: No edema. Laboratory Data: Sodium 141, potassium 3.8, bicarbonate 24, BUN 14, creatinine 1.1, calcium 7.5, mag nesium 2.3. Impression And Plan: 1.Acute on chronic kidney injury secondary to prerenal azotemia. There is borderline prerenal azote renee present. Continue p.o. fluid intake for adequate hydration. 2.Decubitus ulcer, status post debridement. Continue follow up with surgical team and wound care pe r Surgical team. 3.Urinary tract infection, on antibiotic therapy, responding to treatment. The patient is asymptoma tic. EB/MODL Voice ID: [id number] Report ID: [id number]
== END 2020-01-03 16:05 | disposition home health service (06) | DRG 853 ==
LOC: ER 13:11 → ERHOLD 16:48 → 2ND 19:57 → ERHOLD 12-22 18:15 → 4TH 12-25 14:53
PROVIDERS: ADMIT Internal Medicine; ATTEND Hospitalist
PROC: 0JB70ZZ Excision of Back Subcutaneous Tissue and Fascia, Open Approach (ICD-10-PCS; principal; 2019-12-19 08:30)
PROC: 30233N1 Transfusion of Nonautologous Red Blood Cells into Peripheral Vein, Percutaneous Approach (ICD-10-PCS; 2019-12-20)
PROC: 0HR6X74 Replacement of Back Skin with Autologous Tissue Substitute, Partial Thickness, External Approach (ICD-10-PCS; 2019-12-22)
PROC: 0JBM0ZZ Excision of Left Upper Leg Subcutaneous Tissue and Fascia, Open Approach (ICD-10-PCS; 2019-12-22)
PROC: 0HBJXZZ Excision of Left Upper Leg Skin, External Approach (ICD-10-PCS; 2019-12-22)
PROC: 02HV33Z Insertion of Infusion Device into Superior Vena Cava, Percutaneous Approach (ICD-10-PCS; 2019-12-22)
PROC: 30233K1 Transfusion of Nonautologous Frozen Plasma into Peripheral Vein, Percutaneous Approach (ICD-10-PCS; 2019-12-22)
DX: A41.9 Sepsis, unspecified organism (principal); R65.21 Severe sepsis with septic shock; R57.1 Hypovolemic shock; I50.43 Acute on chronic combined systolic (congestive) and diastolic (congestive) heart failure; N17.9 Acute kidney failure, unspecified; E44.1 Mild protein-calorie malnutrition; L03.312 Cellulitis of back [any part except buttock and flank]; E87.2 Acidosis; N39.0 Urinary tract infection, site not specified; D68.9 Coagulation defect, unspecified; I11.0 Hypertensive heart disease with heart failure; Z68.26 Body mass index [BMI] 26.0-26.9, adult; I25.10 Atherosclerotic heart disease of native coronary artery without angina pectoris; W01.0XXA Fall on same level from slipping, tripping and stumbling without subsequent striking against object, initial encounter; R06.00 Dyspnea, unspecified; I49.9 Cardiac arrhythmia, unspecified; E87.6 Hypokalemia; I45.10 Unspecified right bundle-branch block; C44.519 Basal cell carcinoma of skin of other part of trunk; D50.9 Iron deficiency anemia, unspecified; Z88.5 Allergy status to narcotic agent; Z79.82 Long term (current) use of aspirin; Z79.899 Other long term (current) drug therapy; E88.09 Other disorders of plasma-protein metabolism, not elsewhere classified; I48.0 Paroxysmal atrial fibrillation; L89.109 Pressure ulcer of unspecified part of back, unspecified stage; Z20.828 Contact with and (suspected) exposure to other viral communicable diseases
CPT/HCPCS: 36415; 36430; 36569; 51702; 70450; 71045; 72125; 80048; 80053; 81001; 81003; 81015; 82550; 82553; 82570; 82607; 82728; 82947; 83540; 83605; 83735; 83880; 84100; 84145; 84300; 84443; 84466; 84484; 85014; 85018; 85025; 85610; 85730; 86160; 86850; 86900; 86901; 87040; 87086; 87088; 88304; 88305; 93005; 93306; 94760; 96365; 97110; 97116; 97161; 97530; 99285; J1100; J1160; J1650; J2175; J2250; J2270; J2370; J2405; J2543; J2704; J2916; J3010; J3370; J3480; J7030; J7040; J7050; J7060; J7120; P9016; P9059; U0002